=== PATIENT | female | born 1955 | race African-American/Black ===

== ENCOUNTER → 2020-08-21 | Outpatient (CLI) | payer OTHER ==
[~2020-08-21] MED LIST: ASPIR 8181 MG PO; ASPIRIN325 PO; ATORVASTATIN CA40 MG PO; BACITRACIN15 GM TOP; BAYER CHEWABLE81 MG PO; COZAAR 25 MG TA25 M1 PO; EFFIENT10 MG PO; HYDROCHLOROTHIA25 M2 PO; HYDROCODONE-AP1 EAC6 PO; IBUPROFEN 200200 M1 PO; LIDODERM 5%1 PATC1 TRANSDERM; LINZESS145 MCG PO; MICARDIS 80 MG80 MG PO; MICARDIS HCT 81 EAC1 PO; MIRALAX17 GM PO; PERCOCET PO; SLEEPING PILL; TOPROL XL25 MG PO; VENTOLIN HFA 1818 GM INH; VITAMIN D1000 UNI1 PO
== END ==
LOC: SJCVC 13:47 → SJCVCIMAG 13:47
PROVIDERS: ATTEND Internal Medicine Cardiovascular Disease
DX: I65.23 Occlusion and stenosis of bilateral carotid arteries (principal); R94.31 Abnormal electrocardiogram [ECG] [EKG]; I25.10 Atherosclerotic heart disease of native coronary artery without angina pectoris; I10 Essential (primary) hypertension; E78.00 Pure hypercholesterolemia, unspecified; Z95.1 Presence of aortocoronary bypass graft; Z79.899 Other long term (current) drug therapy; Z87.891 Personal history of nicotine dependence

== ENCOUNTER → 2020-10-07 | Outpatient (CLI) | payer OTHER | LOC: SJCVCIMAG 09-11 11:37 | PROVIDERS: ATTEND Internal Medicine Cardiovascular Disease | DX: I07.1 Rheumatic tricuspid insufficiency (principal); I25.10 Atherosclerotic heart disease of native coronary artery without angina pectoris; I10 Essential (primary) hypertension; E78.5 Hyperlipidemia, unspecified; Z98.61 Coronary angioplasty status; Z95.1 Presence of aortocoronary bypass graft; Z79.82 Long term (current) use of aspirin; Z79.899 Other long term (current) drug therapy ==

== ENCOUNTER → 2021-03-11 | Outpatient (CLI) | payer OTHER ==
[~2021-03-11] VITALS: Ht 160 cm; Wt 76.2 kg
[~2021-03-11] MED LIST changes: +.; +ADIPEX-P37.5 MG PO; +DIAZEPAM 5 MG5 M1 PO; +DIFLUCAN150 M1 PO; +MELOXICAM15 MG PO; +NEURONTIN300 MG PO; +OLMESARTAN MEDO40 MG PO; +ROSUVASTATIN CA10 MG PO
[2021-03-11 13:59] VITALS: BP 126/80
--- NOTE | 2021-03-25 08:50 | NUR ---
Pain Clinic Assessment: 1. History of Osteoarthritis: NO History of Rheumatoid Arthritis: NO 2. Height: 5 ft. 3 in. 160.0 cm. Weight: 168.0 lb. oz. 76.204 kg. Patient's BMI: 29.8 3. Vital Signs: BP: 126/80 Pulse: 95 Resp: 16 Temp: 02 Sat: 100 ECG Mon: 4. Pain Intensity: 1-2 5. Fall Risk: Dizziness: N Needs help standing or walking: N Fallen in the last 3 months: N Fall risk comments: 6. Patient on Blood Thinner: None 7. History of Hypertension: Y 8. Opioid Therapy greater than 6 weeks: N Opiate Contract Signed: 9. Risk Assessment Tool Provided: 10. Functional Assessment Tool: 11. Recreational Drug Use: Never Drug Type: Tobacco Use: Never Smoker Tobacco Type: Amount or Packs/day: How Many Years: Alcohol Use: Yes Frequency: Weekly Quant: ONE DRINK A WEEK
== END | disposition home or self-care (01) ==
LOC: PAIN 12:25
PROVIDERS: ATTEND Anesthesiology Pain Medicine
DX: M51.16 Intervertebral disc disorders with radiculopathy, lumbar region (principal); G89.29 Other chronic pain; I10 Essential (primary) hypertension; I25.2 Old myocardial infarction; I25.10 Atherosclerotic heart disease of native coronary artery without angina pectoris; E11.9 Type 2 diabetes mellitus without complications; E78.5 Hyperlipidemia, unspecified; Z98.890 Other specified postprocedural states; Z79.899 Other long term (current) drug therapy; Z87.442 Personal history of urinary calculi

== ENCOUNTER → 2021-03-27 | Outpatient (CLI) | payer OTHER ==
[~2021-03-27] VITALS: Ht 160 cm; Wt 77.8 kg
[~2021-03-27] MED LIST changes: -.; -NEURONTIN300 MG PO
[2021-03-27 14:29] VITALS: BP 133/85
--- NOTE | 2021-03-27 14:39 | NUR ---
Pain Clinic Assessment: 1. History of Osteoarthritis: NO History of Rheumatoid Arthritis: NO 2. Height: 5 ft. 3 in. 160.0 cm. Weight: 171.6 lb. oz. 77.837 kg. Patient's BMI: 30.4 3. Vital Signs: BP: 133/85 Pulse: 84 Resp: 16 Temp: 02 Sat: 98 ECG Mon: 4. Pain Intensity: 1 UP TO 10 AFTER WALKING 5. Fall Risk: Dizziness: N Needs help standing or walking: N Fallen in the last 3 months: N Fall risk comments: 6. Patient on Blood Thinner: None 7. History of Hypertension: Y 8. Opioid Therapy greater than 6 weeks: N Opiate Contract Signed: 9. Risk Assessment Tool Provided: 10. Functional Assessment Tool: 11. Recreational Drug Use: Never Drug Type: Tobacco Use: Never Smoker Tobacco Type: Amount or Packs/day: How Many Years: Alcohol Use: Yes Frequency: Monthly Quant: 2
== END | disposition home or self-care (01) ==
LOC: PAIN 07:10
PROVIDERS: ATTEND Anesthesiology Pain Medicine
DX: M54.16 Radiculopathy, lumbar region (principal); G89.29 Other chronic pain; I10 Essential (primary) hypertension; E78.5 Hyperlipidemia, unspecified; E11.9 Type 2 diabetes mellitus without complications; I25.10 Atherosclerotic heart disease of native coronary artery without angina pectoris; I25.2 Old myocardial infarction; Z98.890 Other specified postprocedural states; Z79.899 Other long term (current) drug therapy; Z87.442 Personal history of urinary calculi

== ENCOUNTER → 2021-04-22 | Outpatient (CLI) | payer OTHER ==
[~2021-04-22] MED LIST changes: +.; +NEURONTIN300 MG PO
[2021-04-22 10:06] VITALS: BP 143/89
--- NOTE | 2021-04-22 10:27 | NUR ---
Pain Clinic Assessment: 1. History of Osteoarthritis: NO History of Rheumatoid Arthritis: NO 2. Height: ft. in. cm. Weight: lb. oz. kg. Patient's BMI: 3. Vital Signs: BP: 143/89 Pulse: 78 Resp: 14 Temp: 02 Sat: 100 ECG Mon: 4. Pain Intensity: 1 UP TO 10 AFTER WALKING 5. Fall Risk: Dizziness: N Needs help standing or walking: N Fallen in the last 3 months: N Fall risk comments: 6. Patient on Blood Thinner: None 7. History of Hypertension: Y 8. Opioid Therapy greater than 6 weeks: N Opiate Contract Signed: 9. Risk Assessment Tool Provided: LOW-0 10. Functional Assessment Tool: 11. Recreational Drug Use: Never Drug Type: Tobacco Use: Never Smoker Tobacco Type: Amount or Packs/day: How Many Years: Alcohol Use: Yes Frequency: Special Occasions Quant:
== END ==
LOC: PAIN 06:57
PROVIDERS: ATTEND Anesthesiology Pain Medicine
DX: M54.16 Radiculopathy, lumbar region (principal); M54.12 Radiculopathy, cervical region; E11.9 Type 2 diabetes mellitus without complications; N20.0 Calculus of kidney; E53.8 Deficiency of other specified B group vitamins; I25.10 Atherosclerotic heart disease of native coronary artery without angina pectoris; I10 Essential (primary) hypertension; E78.5 Hyperlipidemia, unspecified; Z79.899 Other long term (current) drug therapy; Z79.891 Long term (current) use of opiate analgesic

== ENCOUNTER 2021-06-18 18:41 | Inpatient (IN) | payer OTHER ==
[~2021-06-18] VITALS: Ht 160 cm; Wt 77.1 kg
--- NOTE | 2021-06-18 00:10 | NUR ---
Pt admit to ICU around 0010. She is AAOX4. Noted to be labored breathing upron arrival. Her RR is in mid 40. Denies of any CP or chest discomfort. Very tachypneic with any activity noted. Hx obtained , assessment completed. Continue to monitor her colosely
[2021-06-18 18:45] VITALS: BP 173/108
[2021-06-18 20:12] LABS: HEMOGLOBIN 13.1 gm/dL (12.0-15.0); MCH 27.4 pg (26.0-34.0); MCHC 32.8 g/dL (28.0-37.0); MCV 83.6 fL (80.0-100.0); PLATELET COUNT 260 thou/uL (150-400); RBC 4.79 mil/uL (4.20-5.00); RDW 14.3 % (10.5-14.5); WBC 6.2 thou/uL (4.0-11.0)
[2021-06-18 20:14] LABS: ANION GAP 10 mmol/L (7-16); BUN 19 mg/dL (7-18); CALCIUM 9.1 mg/dL (8.5-10.1); CHLORIDE 98 mmol/L (98-107); CO2 28 mmol/L (21-32); CREATININE 1.1 mg/dL (0.6-1.0); GLUCOSE 97 mg/dL (74-106); POTASSIUM 3.4 mmol/L (3.5-5.1); SODIUM 136 mmol/L (136-145)
[2021-06-18 20:25] LABS: ALBUMIN 2.7 g/dL (3.4-5.0); SGOT 73 U/L (15-37); SGPT 31 U/L (30-65); TOTAL BILIRUBIN 0.7 mg/dL (0.2-1.0); TOTAL PROTEIN 8.1 g/dL (6.4-8.2); TROPONIN-I <0.06 ng/mL (<0.06)
[2021-06-18 20:56] LABS: ABSOLUTE NEUTROPHILS 4.7 thou/uL (1.4-8.2); ANISOCYTOSIS 1+; PLATELET ESTIMATE NORMAL; POIKILOCYTOSIS 1+
[2021-06-18 21:16] LABS: BE(vivo) 2.2 mmol/L (-2 to +3); HCO3 25.3 mmol/L (22.0-26.0); PCO2 34.3 mmHg (35.0-45.0); PO2 88.9 mmHg (80.0-100.0); pH 7.486 (7.360-7.450); sO2 97.4 % (92.0-98.0)
[2021-06-18] MEDS ORDERED: METFORMIN HCL500 MG PO (21:33)
[2021-06-18] MEDS ORDERED: NEURONTIN 300M300 M2 PO (21:34)
[2021-06-18 23:58] VITALS: BP 162/83
[2021-06-19] VITALS (53 sets, daily range): BP systolic 137–194; BP diastolic 73–108
--- NOTE | 2021-06-19 07:00 | NUR ---
Pt is continue to be very tachypneic. Place her on BIPAP this morning. She reported felt slightly better. Continue to be on high O2 concentration. Not making any progress this morning.
--- NOTE | 2021-06-19 07:19 | EKG ---
[address] [address] ELECTROCARDIOGRAM REPORT Name: DURGA ALMANZA Room #: 240-P ADM IN M.R.#: [id number] Admission: 06/18/21 Attend Phys: Alli Blancas DO Discharge: Date of : 53 Report #: [id number] [facility] ED Test Date: 2021-06-18 Test Time: 20:24:39 Pat Name: DURGA ALMANZA Department: Room: 240 Gender: F [employer] Architect: philomena pierre : 1955 Requested By: Pawan Singh Order Number: [id number] MD: Conor Bey Measurements Intervals [place] Rate: 99 P: 19 RI: 111 QRS: -21 QRSD: 92 T: 158 QT: 347 QTc: 446 Interpretive Statements Sinus rhythm Probable left atrial enlargement LVH with secondary repolarization abnormality Compared to ECG 04/13/2016 06:41:32 Left ventricular hypertrophy now present Early repolarization now present Intraventricular conduction delay no longer present T-wave abnormality no longer present Possible ischemia no longer present Electronically Signed On 06-19-2021 7:19:23 CDT by Conor Bey [email or web address] <ELECTRONICALLY SIGNED> By: Conor Bey MD, FAC 06/19/21718 23 23 Conor Bey MD, [facility] /EPI
--- NOTE | 2021-06-19 08:20 | NUR ---
SPOKE TO PT'S SON AT 0819 AND UPDATED PER POC
[2021-06-19 09:33] LABS: ALBUMIN 2.4 g/dL (3.4-5.0); CALCIUM 8.5 mg/dL (8.5-10.1); CREATININE 0.8 mg/dL (0.6-1.0); DIRECT BILIRUBIN 0.2 mg/dL (<0.1-0.2); PHOSPHORUS 2.9 mg/dL (2.6-4.7); POTASSIUM 3.5 mmol/L (3.5-5.1); TOTAL BILIRUBIN 0.5 mg/dL (0.2-1.0); TOTAL PROTEIN 7.3 g/dL (6.4-8.2)
--- NOTE | 2021-06-19 10:49 | NUR ---
ASSUMED CARE OF PT AT 0700. DR. NORTON AT BEDSIDE AY 0815. ORDERS FOR SPUTUM SAMPLE GIVEN.
--- NOTE | 2021-06-19 14:57 | NUR ---
COVID +. Enhanced isolation. Needing bipap and optflow oxygen. Cm visited with her son jesus sosa via phone call. Education on dcp and home needs. CM clarification on dr carolina vs dr cross as her pcp, both listed. Per son she is with dr cross at [facility], she not seen dr ramirez in years. She lives in [place] [facility] in [facility] but connected. Independent. No dme, manage own medication, and drives vehicle. Had 1st covid vaccine and she was suppose to go and get 2nd one but she got sick. no rehab in past. home health 1 time before for couple weeks. thank you for calling per son reba sosa and son . No anticipated dc over the weekend. Cm passed on to bedside nurse about change in MD.
[2021-06-20] VITALS (43 sets, daily range): BP systolic 129–176; BP diastolic 65–105
[2021-06-20 04:07] LABS: CALCIUM 7.9 mg/dL (8.5-10.1); CREATININE 0.8 mg/dL (0.6-1.0); POTASSIUM 3.2 mmol/L (3.5-5.1)
[2021-06-20 04:48] LABS: HEMATOCRIT 34.3 % (37.0-47.0); HEMOGLOBIN 11.2 gm/dL (12.0-15.0); MCH 27.3 pg (26.0-34.0); MCHC 32.8 g/dL (28.0-37.0); MCV 83.4 fL (80.0-100.0); RBC 4.11 mil/uL (4.20-5.00); WBC 10.9 thou/uL (4.0-11.0)
--- NOTE | 2021-06-20 08:05 | NUR ---
1999-SPOKE TO PT'S SON, UPDATE GIVEN. 2129-SPOKE TO DR. ROY, PT HAD ASKED FOR SLEEPING PILL, ALSO REPORTED TYLENOL DIDN'T HELP. OBTAINED ORDERS FOR MELATONIN AND NORCO. NORCO GIVEN x2 OVERNIGHT. BP BETTER CONTROLLED OVERNIGHT, STARTED TO RISE AGAIN THIS AM. RESP RATE CONTINUED TO BE 30-40'S OVERNIGHT. NO OTHER CONCERNS, SLOW PROGRESSION TOWARDS GOALS.
--- NOTE | 2021-06-20 09:05 | HC ---
[facility] [place] [address] CONSULTATION Name: DURGA ALMANZA Room #: 240-P ADM IN M.R.#: [id number] Admission: 06/18/21 Attend Phys: Alli Blancas DO Discharge: Date of : 53 Report #: [id number] THIS REPORT FOR: cc: Jose E Pope John E. DO Barry, Joseph W. MD ~ DATE OF SERVICE: 06/19/2021 INFECTIOUS DISEASE CONSULTATION ATTENDING PHYSICIAN: Dr. Blancas REASON FOR EVALUATION: COVID-19 infection, complicated by pneumonitis and respiratory failure. HISTORY OF PRESENT ILLNESS: Chart reviewed and the patient examined. This is a 66-year-old woman with history of diabetes mellitus, has known vasculopathy, coronary artery disease, hypertension, is admitted through the Emergency Room with progressive dyspnea and some fever, sore throat, cough as well. It is dated back to roughly a week ago; however, it progressed over the last 72 hours. She has had some diminishment in appetite, poor p.o. intake during that period as well. Chest x-ray did confirm cardiomegaly with bilateral infiltrates. Due to mildly elevated D-dimer, CT was done of the chest, which showed no evidence of PE, although confirmed extensive bilateral ground-glass opacities, mildly elevated AST. CBC with white count of 6.2. She is not anemic. ABGs showed pH 7.46, pCO2 of 34.3, pO2 of 88.9 on a nonrebreather. She currently is on BiPAP at 80%. She is generally lucid. ALLERGIES: None known. MEDICATIONS: Include enoxaparin, ascorbic acid, famotidine, ceftriaxone, hydralazine, methylprednisolone, zinc, azithromycin, remdesivir. PAST MEDICAL HISTORY: As described above, diabetes, known coronary artery disease, previous aortocoronary bypass grafting, hypertension, hyperlipidemia, renal lithiasis, chronic low back pain, previous history of pneumothorax. SOCIAL HISTORY: Former smoker, occasional ethanol. No illicit drug use, though has used in the past. FAMILY HISTORY: Noncontributory. REVIEW OF SYSTEMS: Somewhat limited due to her decreased capacity. PHYSICAL EXAMINATION: GENERAL: Appears moderate to marked distress. She is generally lucid, tracking [facility] [address] [place] [address] CONSULTATION Name: DURGA ALMANZA Room #: [address] [place] [address] IN M.R.#: [id number] Admission: 06/18/21 Attend Phys: Alli Blancas DO Discharge: Date of : 53 Report #: [id number] well, appears reasonably well nourished. VITAL SIGNS: Temperature 97, pulse 113, respirations 43, blood pressure is 157/83. SKIN: Warm, dry, no rashes. HEENT: Normocephalic. Extraocular muscles intact. Has a BiPAP mask in place. NECK: Supple. LUNGS: Scattered coarse breath sounds. HEART: Tachycardic, distant, ____ a murmur. ABDOMEN: Distended, somewhat firm. No peritoneal signs. She does not complain of any tenderness. GENITOURINARY AND RECTAL: Deferred. LABORATORY DATA: Blood cultures sterile thus far. Electrolytes: Sodium 139, potassium 3 5, chloride 103, bicarbonate is 23, anion gap of 13. BUN and creatinine 13 and 0.8. Glucose of 149. AST of 75, ALT of 30. Albumin of 2.4, total protein 7.3, estimated GFR of 87. CT chest as described above. CBC: White count of 6.2, H and H 13.1 and 40.0, platelets of 260. Electrolytes: Sodium 136, potassium 3.4, chloride 90, bicarbonate is 28, anion gap of 10. BUN and creatinine 19 and 1.1. Glucose of 97. ASSESSMENT AND PLAN: COVID-19 infection, complicated by pneumonitis, respiratory failure with perhaps early acute respiratory distress syndrome. She remains quite tenuous at this point. We will continue broad-spectrum therapy including directed to the coronavirus. Discussed with pharmacy. They are attempting to obtain IL-6 monoclonal antibody. In addition, I will continue remdesivir and corticosteroids as well as vitamins as well as empiric therapy with antibacterials. We will try to obtain a sputum culture, although not likely forthcoming. Thank you, we will follow. Prognosis appears guarded. <ELECTRONICALLY SIGNED> By: Tay Joyner MD 06/20/21 0905 0929 [id number] Tay Joyner MD /nt
--- NOTE | 2021-06-20 16:13 | NUR ---
PATIENT CONTINUING WITH PLAN OF CARE. PATIENT ON BIPAP FIRST HALF OF THE DAY AND SWITCHED TO OPTIFLOW PER PATIENT REQUEST. DR REDD SPOKE WITH PATIENT TODAY ABOUT PLANS FOR POTENTIAL VENTILATION MANAGEMENT. SPOKE WITH FAMILY ON THE PHONE TWICE TODAY ABOUT PATIENT STATUS. SPOKE TO SON FILIPE ALLEN. CENTRAL LINE PLACED BY IV TEAM TODAY. ADEQUATE URINE OUTPUT. AFEBRILE.
[2021-06-21] VITALS (140 sets, daily range): BP systolic 94–190; BP diastolic 60–147
[2021-06-21 05:56] LABS: HEMATOCRIT 36.6 % (37.0-47.0); HEMOGLOBIN 11.8 gm/dL (12.0-15.0); MCH 26.9 pg (26.0-34.0); MCHC 32.1 g/dL (28.0-37.0); MCV 83.7 fL (80.0-100.0); RBC 4.38 mil/uL (4.20-5.00); RDW 14.1 % (10.5-14.5); WBC 11.4 thou/uL (4.0-11.0)
[2021-06-21 06:21] LABS: CALCIUM 8.1 mg/dL (8.5-10.1); CREATININE 0.7 mg/dL (0.6-1.0); POTASSIUM 3.1 mmol/L (3.5-5.1)
--- NOTE | 2021-06-21 09:32 | NUR ---
CL PLACED FOR COVID
[2021-06-21 10:54] LABS: BE(vivo) -4.3 mmol/L (-2 to +3); PO2 287.9 mmHg (80.0-100.0); pH 7.307 (7.360-7.450); sO2 99.6 % (92.0-98.0)
--- NOTE | 2021-06-21 11:02 | NUR ---
0921 INTUBATION WITH RT, RN AND DR REDD IN ROOM.
--- NOTE | 2021-06-21 11:28 | NUR ---
UPON AM ASSESSMENT 0800 PATIENT DESATS TO 65% WITH HFNC AND NON REBREATHER. PATIENT PULLED OFF FACE. PATIENT DROWSY AND RESPONDS TO RN VOICE. PATIENT RR TACHYPNEA UPPER 30'S-40'S. DR REDD NOTIFIED ABOUT PATIENT STATUS. AND PLANS FOR INTUBATION. AROUND 0900 PATIENT HR INCREASED TO 180-[address] REDD NOTIFIED. CARDIZEM GIVEN ONE TIME FOR HR. DR REDD AT BEDSIDE AT 0910. PATIENT INTUBATED AT 0921. PATIENT IN RESTRAINTS BY 0930. PATIENT TOLERATING VENTILATOR SETTINGS AT THIS TIME. SEDATED PROPOFOL AN FENTANYL. PATIENT FAMILY NOTIFIED BEFORE AND AFTER INTUBATED. PATIENT FAMILY SPOKE WITH PATIENT ON PHONE IN ROOM PRIOR TO INTUBATION.
--- NOTE | 2021-06-21 12:26 | EKG ---
[address] [address] ELECTROCARDIOGRAM REPORT Name: DURGA ALMANZA Room #: 240- ADM IN M.R.#: [id number] Admission: 06/18/21 Attend Phys: Alli Blancas DO Discharge: Date of : 53 Report #: [id number] [facility] Test Date: 2021-06-21 Test Time: 09:27:42 Pat Name: DURGA ALMANZA Department: Room: 240 Gender: F [employer] Architect: COURTNEY : 1955 Requested By: Billy Veliz Order Number: [id number] MD: Espinoza Horne Measurements Intervals [place] Rate: 102 P: 38 [place]: 119 QRS: -7 QRSD: 88 T: 141 QT: 356 QTc: 464 Interpretive Statements Sinus tachycardia Probable left atrial enlargement Borderline repolarization abnormality Compared to ECG 06/18/2021 20:24:39 Sinus rhythm no longer present Left ventricular hypertrophy no longer present Electronically Signed On 06-21-2021 12:26:32 CDT by Espinoza Horne [email or web address] <ELECTRONICALLY SIGNED> By: Espinoza Horne MD 06/21/21 1226 6 6 Espinoza Horne MD /KYLE
--- NOTE | 2021-06-21 16:01 | NUR ---
ASSUMED CARE OF PATIENT AT 0600. PATIENT WAS ON A NRBM AND MAXED ON OPTIFLOW OF 65 LPM AND 98%. HER HEART RATE WAS IN THE 190-200 RANGE AND WE CONTACTED DR REDD AND HE CAME TO EMERGENTLY INTUBATE. HER SETTINGS WERE 16/450/.100 +12. POST INTUBATION BLOOD GAS HER PH WAS CRITICAL AT 7.30 AND ALL OTHER VALUES WERE WITHIN NORMAL LIMITS. WE MADE THE CHANGE TO HER VENT SETTINGS TO 16/450/.60 +12. SHE HAS MAINTAINED HER SATURATION AND SHOWN NO SIGNS OF DISTRESS. WE WILL CONTINUE TO WEAN TOLERATED.
--- NOTE | 2021-06-21 16:49 | NUR ---
AFTER INTUBATION FROM EARLIER TODAY AT 0921 PATIENT TOLERATES CURRENT VENTILATOR SETTINGS. CURRENTLY 60% VT 450, RR 16, PEEP 12. PATIENT SEDATED ON PROPOFOL AND FENTANYL. TACHYCARDIA RESOLVES. PATIENT NSR. BLOOD PRESSURE WITHIN NORMAL LIMITS. PATIENT FAMILY (SON) FILIPE UPDATED ON PATIENT STATUS.
[2021-06-22] VITALS (49 sets, daily range): BP systolic 78–117; BP diastolic 49–72
[2021-06-22 05:16] LABS: BE(vivo) -2.8 mmol/L (-2 to +3); HCO3 24.4 mmol/L (22.0-26.0); PCO2 53.7 mmHg (35.0-45.0); PO2 117.5 mmHg (80.0-100.0); sO2 97.7 % (92.0-98.0)
[2021-06-22 05:17] LABS: pH 7.276 (7.360-7.450)
[2021-06-22 06:27] LABS: HEMATOCRIT 31.4 % (37.0-47.0); HEMOGLOBIN 10.2 gm/dL (12.0-15.0); MCH 27.5 pg (26.0-34.0); MCHC 32.3 g/dL (28.0-37.0); MCV 84.9 fL (80.0-100.0); RBC 3.7 mil/uL (4.20-5.00); RDW 14.6 % (10.5-14.5); WBC 9.8 thou/uL (4.0-11.0)
[2021-06-22 06:48] LABS: CREATININE 0.9 mg/dL (0.6-1.0)
[2021-06-22 07:01] LABS: POTASSIUM 4.4 mmol/L (3.5-5.1)
--- NOTE | 2021-06-22 08:43 | NUR ---
COMPLETED ROUNDING WITH ICU TEAM.
--- NOTE | 2021-06-22 10:17 | NUR ---
recommend stop ivf and start water flushes once tube feeds at goal.
--- NOTE | 2021-06-22 15:44 | NUR ---
Chart review. COVID +, required intubation on the 06/21/21. Enhanced isolation. Bedside nurses have provided updates to her son. Will cont following as needed for dc needs.
--- NOTE | 2021-06-22 16:14 | NUR ---
HELD TUBE FEEDING FOR A COUPLE OF HOURS TODAY A RESIDUAL WAS AROUNF 100MLS. RESTART AT 25MLS PER HOUR. UPDATE SON ON PT'S CONDITION OVER PHONE BUT WILL DEFER TO PYSICIAN FOR DEFINITIVE DIAGNOSIS. WILL CONTIUE TO ASSESS.
--- NOTE | 2021-06-22 22:14 | NUR ---
PT'S SON (FILIPE) CALL UNIT. HE WAS UPDATED ON PT STATUS AND POC.
[2021-06-23] VITALS (33 sets, daily range): BP systolic 109–179; BP diastolic 59–94
--- NOTE | 2021-06-23 04:26 | NUR ---
PT REMAINS SEDATED WITH PROPOFOL, FENTANYL, AND VERSED FOR VENT MANAGEMENT. SEDATION WAS ABLE TO BE TITRATED DOWN SLIGHTLY WHILE STILL MAINTAINING PT COMFORT LEVEL, RR, AND SPO2 WITHIN NORMAL LIMITS. AFEBRILE. MAP >60 WITH LEVOPHED GTT. CAAL TO DD WITH GOOD URINE OUTPUT. TF VIA OGT; STILL HAVING RESIDUALS 100-200ML, SO UNABLE INCREASE TF RATE TO GOAL. Q2H TURN. PROGRESSING VERY SLOWLY TOWARD POC GOALS. WILL MONITOR FURTHER.
[2021-06-23 10:09] LABS: HEMATOCRIT 36.1 % (37.0-47.0); HEMOGLOBIN 11.4 gm/dL (12.0-15.0); MCH 26.6 pg (26.0-34.0); MCHC 31.6 g/dL (28.0-37.0); MCV 84.3 fL (80.0-100.0); RBC 4.29 mil/uL (4.20-5.00); RDW 14.1 % (10.5-14.5); WBC 13.5 thou/uL (4.0-11.0)
--- NOTE | 2021-06-23 10:25 | NUR ---
ASSUMED CARE OF PT AT 0700 CALLED THE SON BACK AT 1028, SPOKE TO THE BECAUSE HE WAS UNABLE TO ANSWER AND UPDATED HER PER POC
[2021-06-23 11:21] LABS: CALCIUM 8.8 mg/dL (8.5-10.1); CREATININE 1.2 mg/dL (0.6-1.0); POTASSIUM 4.1 mmol/L (3.5-5.1)
[2021-06-23 11:25] LABS: DIRECT BILIRUBIN 0.2 mg/dL (<0.1-0.2); TOTAL BILIRUBIN 0.3 mg/dL (0.2-1.0); TOTAL PROTEIN 6.6 g/dL (6.4-8.2)
--- NOTE | 2021-06-23 21:50 | NUR ---
UPON INITIAL ASSESSMENT, PT WAS TACHYCARDIC HR 120S, SBP 140-150S. SHE HAD STRONG COUGH/GAG REFLEX CAUSING HER TO SIT UP IN BED. SEDATION HAD BEEN DECREASED GREATLY DURING PREVIOUS SHIFT. INCREASED PROPOFOL AND FENTANYL DRIP RATES. RESUMED VERSED GTT AT LOW DOSE. PT NOW MORE RELAXED, HR 110S, SBP 120S, RESTING QUIETLY IN BED. WILL MONITOR FURTHER.
[2021-06-24] VITALS (34 sets, daily range): BP systolic 102–150; BP diastolic 54–86
--- NOTE | 2021-06-24 06:30 | NUR ---
PT REMAINS SEDATED WITH PROPOFOL, FENTANYL, AND VERSED AT NRON-CQ-BLSYTOUQ DOSES. TF INCREASED TO GOAL RATE SHE HAS BEEN TOLERATING TF WELL WITH LOW RESIDUALS. NO BM YET. GOOD URINE OUTPUT VIA CAAL. TOLERATING VENT SETTINGS WELL; REMAINS ON 40% FIO2. SHE DOES DESAT IN TO THE 80S WITH HOB LOWERED OR SIGNIFICANT REPOSITIONING. PROGRESSING SLOWLY TOWARD POC GOALS. WILL GIVE REPORT TO DAY SHIFT RN.
[2021-06-24 13:30] LABS: HEMATOCRIT 32.9 % (37.0-47.0); HEMOGLOBIN 10.4 gm/dL (12.0-15.0); MCH 26.6 pg (26.0-34.0); MCHC 31.5 g/dL (28.0-37.0); MCV 84.5 fL (80.0-100.0); RBC 3.9 mil/uL (4.20-5.00); RDW 14.5 % (10.5-14.5); WBC 14.5 thou/uL (4.0-11.0)
[2021-06-24 16:41] LABS: CREATININE 1.1 mg/dL (0.6-1.0); MAGNESIUM 2.1 mg/dL (1.8-2.4); POTASSIUM 4.5 mmol/L (3.5-5.1)
--- NOTE | 2021-06-24 21:18 | NUR ---
ASSUMED CARE OF PATIENT AT 1900. PATIENT'S SON FILIPE CALLED. UPDATED ON PATIENT STATUS AND POC. SON ASKED TO Uni[facility], PHONE NUMBER OBTAINED, USED THE IPAD TO CALL. IPAD IS CURRENTLY IN THE ROOM WITH THE PATIENT, SON AND HIS ARE SPEAKING WITH HER.
[2021-06-25] VITALS (29 sets, daily range): BP systolic 101–154; BP diastolic 53–98
[2021-06-25 03:56] LABS: HEMATOCRIT 32.9 % (37.0-47.0); HEMOGLOBIN 10.4 gm/dL (12.0-15.0); MCH 26.7 pg (26.0-34.0); MCHC 31.5 g/dL (28.0-37.0); MCV 84.7 fL (80.0-100.0); PLATELET COUNT 196 thou/uL (150-400); RBC 3.88 mil/uL (4.20-5.00); RDW 14.3 % (10.5-14.5); WBC 13.5 thou/uL (4.0-11.0)
[2021-06-25 04:42] LABS: BE(vivo) -1.8 mmol/L (-2 to +3); HCO3 25.7 mmol/L (22.0-26.0); PCO2 56.9 mmHg (35.0-45.0); PO2 98.6 mmHg (80.0-100.0); pH 7.273 (7.360-7.450); sO2 96.5 % (92.0-98.0)
[2021-06-25 04:50] LABS: ALBUMIN 1.7 g/dL (3.4-5.0); CALCIUM 8.2 mg/dL (8.5-10.1); POTASSIUM 4.7 mmol/L (3.5-5.1); TOTAL BILIRUBIN 0.2 mg/dL (0.2-1.0); TOTAL PROTEIN 5.7 g/dL (6.4-8.2)
[2021-06-25 09:10] LABS: ABSOLUTE NEUTROPHILS 12.6 thou/uL (1.4-8.2); PLATELET ESTIMATE NORMAL
--- NOTE | 2021-06-25 20:32 | NUR ---
PATIENT'S SON, FILIPE, CALLED FROM [phone] AND FROM [phone] AND HE WAS UPDATED AND EDUCATED ON THE PATIENT'S CONDITION AND PLAN OF CARE. PATIENT SLOWLY PROGRESSING TOWARDS THE PLAN OF CARE EVIDENCED BY DECREASED SEDATION NEEDS.
[2021-06-26] VITALS (25 sets, daily range): BP systolic 132–184; BP diastolic 68–95
--- NOTE | 2021-06-26 15:15 | NUR ---
Chart review, discussed during am unite rounds and los. +COVID, remains on vent with nutritional support. Bedside nurse has provided updates to her son reba yanes cont. following as needed for dc needs.
[2021-06-27] VITALS (23 sets, daily range): BP systolic 122–200; BP diastolic 72–104
[2021-06-27 04:12] LABS: ABSOLUTE NEUTROPHILS 8.2 thou/uL (1.4-8.2); BASOPHILS 0.2 % (0.0-2.0); HEMATOCRIT 33.3 % (37.0-47.0); HEMOGLOBIN 10.6 gm/dL (12.0-15.0); LYMPHOCYTES 5.4 % (24.0-44.0); MCH 26.4 pg (26.0-34.0); MCHC 31.7 g/dL (28.0-37.0); MCV 83.3 fL (80.0-100.0); MONOCYTES 6.9 % (1.0-8.0); PLATELET COUNT 239 thou/uL (150-400); POLYS 87.5 % (36.0-66.0); RBC 3.99 mil/uL (4.20-5.00); RDW 14.1 % (10.5-14.5); WBC 9.4 thou/uL (4.0-11.0)
[2021-06-27 04:29] LABS: ALBUMIN 1.9 g/dL (3.4-5.0); CALCIUM 8.3 mg/dL (8.5-10.1); CREATININE 0.9 mg/dL (0.6-1.0); POTASSIUM 5.2 mmol/L (3.5-5.1); TOTAL BILIRUBIN 0.3 mg/dL (0.2-1.0)
--- NOTE | 2021-06-27 08:44 | NUR ---
ASSUMED CARE OF PT AT 0700 SPOKE TO PT SON AND UPDATED PER POC
[2021-06-28] VITALS (25 sets, daily range): BP systolic 129–182; BP diastolic 70–97
--- NOTE | 2021-06-28 09:02 | NUR ---
ASSUMED CARE OF PT AT 0700 SPOKE TO PT'S SON AT 0900 AND UPDATED HIM PER POC
[2021-06-28 09:21] LABS: HEMATOCRIT 33.3 % (37.0-47.0); HEMOGLOBIN 10.8 gm/dL (12.0-15.0); MCHC 32.5 g/dL (28.0-37.0); RBC 4.01 mil/uL (4.20-5.00); RDW 14.4 % (10.5-14.5); WBC 9.5 thou/uL (4.0-11.0)
[2021-06-28 09:31] LABS: CALCIUM 9.1 mg/dL (8.5-10.1); POTASSIUM 5.3 mmol/L (3.5-5.1)
--- NOTE | 2021-06-28 18:39 | NUR ---
Pt not meeting goals. Arousable only to painful stimulation.
--- NOTE | 2021-06-28 22:33 | NUR ---
2145 - DR ROY AT BEDSIDE TO SEE PT. NURSE IN ROOM WELL. DR ROY WAS NOTIFIED THAT PT IS MINIMALLY RESPONSIVE EVEN WITHOUT ANY SEDATION. SHE DID GRIMACE WITH PAINFUL STIMULI BY STERNAL RUB. + COUGH/GAG REFLEX. SHE DOES NOT FOLLOW COMMANDS OR OPEN HER EYES. DR ROY WAS ALSO MADE AWARE THAT HER PUPILS HAD BEEN UNEQUAL, BUT UPON REASSESSMENT BY BOTH AND RN, PUPILS APPEARED EQUAL AND REACTIVE TO LIGHT. DR ROY REQUESTED RN CALL CLINICAL PHARMACIST FOR IVF RECOMMENDATION AND THEN TO ORDER IVF ACCORDINGLY.
[2021-06-29] VITALS (29 sets, daily range): BP systolic 113–180; BP diastolic 55–100
--- NOTE | 2021-06-29 03:40 | NUR ---
PT'S SON FILIPE CALLED UNIT. UPDATE PROVIDED ON PT'S CONDITION AND POC. ALL QUESTIONS ANSWERED. HE WOULD LIKE TO CALL BACK LATER TO KEVIN HIS MOTHER IN THE IPAD.
--- NOTE | 2021-06-29 03:42 | NUR ---
NO SIGNIFICANT EVENTS SO FAR DURING THE NIGHT. PT REMAINS OFF SEDATION. SHE STILL DOES NOT OPEN EYES OR RESPOND TO VERBAL COMMANDS. PT DOES GRIMACE AND ATTEMP TO MOVE HEAD AWAY WHEN ORAL CARE IS PROVIDED. TF AT GOAL RATE, INFUSING VIA OGT. MINIMAL RESIDUALS NOTED. CAAL TO DD WITH GOOD URINE OUTPUT. LOW-GRADE FEVER NOTED. WILL TREAT WITH TYLENOL INDICATED. PROGRESSING SLOWLY TOWARD POC GOALS. WILL MONITOR FURTHER.
--- NOTE | 2021-06-29 05:38 | NUR ---
0530 - PT'S SON AND [id number] FACETIMED WITH PT ON IPAD.
--- NOTE | 2021-06-29 10:08 | NUR ---
ASSUMMED CARE OF THIS PATIENT AT 0700 THIS AM FROM THE NIGHT NURSE, CARMEN SOLIS. PATIENT REMAINS ON TUBE FEEDING AND TOLERATING IT WELL. HEART RATE INCREASED TO THE 120'S WITH ETT SUCTIONING.
--- NOTE | 2021-06-29 11:00 | NUR ---
CALLED THE PATIENT'S SON AND UPDATED HIM ON HIS MOTHER'S CONDITION AND POC. REASSURANCE GIVEN,
--- NOTE | 2021-06-29 15:01 | NUR ---
Chart review, discussed during am unite rounds . COVID +. Bedside nurse cont. update son and daughter in law. Noted son and daughter in law were able to face time this morning . Vent. Nutritional support. Will cont. following as needed for dc needs.
--- NOTE | 2021-06-29 16:40 | NUR ---
PATIENT IS STABLE BUT NOT PROGRSSING TOWARDS OUTCOME GOALS SHE IS UNABLE TO CPAP TODAY. SEDATION REMAINS OFF. PLEASE REFER TO ASSESSMENTS.
[2021-06-30] VITALS (36 sets, daily range): BP systolic 125–193; BP diastolic 59–141
[2021-06-30 04:49] LABS: HEMATOCRIT 32.2 % (37.0-47.0); HEMOGLOBIN 10.3 gm/dL (12.0-15.0); MCHC 32.1 g/dL (28.0-37.0); MCV 84.1 fL (80.0-100.0); RBC 3.83 mil/uL (4.20-5.00); RDW 14.1 % (10.5-14.5); WBC 7.7 thou/uL (4.0-11.0)
[2021-06-30 05:50] LABS: CALCIUM 8.5 mg/dL (8.5-10.1); CREATININE 0.8 mg/dL (0.6-1.0); POTASSIUM 4.9 mmol/L (3.5-5.1)
[2021-06-30 08:12] LABS: BE(vivo) 8.2 mmol/L (-2 to +3); HCO3 32.5 mmol/L (22.0-26.0); PCO2 44.4 mmHg (35.0-45.0); PO2 73.2 mmHg (80.0-100.0); pH 7.483 (7.360-7.450); sO2 95.6 % (92.0-98.0)
--- NOTE | 2021-06-30 10:11 | NUR ---
ASSUMED CARE OF PT AT 0700.
--- NOTE | 2021-06-30 16:08 | NUR ---
SPOKE TO DR. REDD AT 1608 TO LET HIM KNOW THAT CT ONLY HAS ONE TECH AND ARE BACKED UP WITH ED PATIENTS. HE SAID THAT GETTING THE CT THIS EVENING OR FIRST THING TOMORROW MORNING WOULD BE FINE.
--- NOTE | 2021-06-30 18:02 | NUR ---
PT NOT MEETING GOALS DUE TO ONLY FOLLOWING SIMPLE COMMANDS AND NOT FULLY WAKING UP.
--- NOTE | 2021-06-30 18:35 | NUR ---
DR. ROY AT BEDSIDE 183. NO NEW ORDERS GIVEN.
[2021-07-01] VITALS (47 sets, daily range): BP systolic 111–177; BP diastolic 54–93
[2021-07-01 03:25] LABS: HEMATOCRIT 30.5 % (37.0-47.0); HEMOGLOBIN 9.7 gm/dL (12.0-15.0); MCH 26.9 pg (26.0-34.0); MCHC 31.8 g/dL (28.0-37.0); MCV 84.5 fL (80.0-100.0); RBC 3.61 mil/uL (4.20-5.00); RDW 13.9 % (10.5-14.5); WBC 8.5 thou/uL (4.0-11.0)
[2021-07-01 04:50] LABS: CALCIUM 8.7 mg/dL (8.5-10.1); CREATININE 0.8 mg/dL (0.6-1.0); POTASSIUM 4.7 mmol/L (3.5-5.1)
--- NOTE | 2021-07-01 06:26 | NUR ---
ASSUMED CARE OF PATIENT AT 1900. RESTING THROUGH THE NIGHT. FACETIME WITH SON AT 0530 THIS AM. ALL QUESTIONS ANSWERED.
--- NOTE | 2021-07-01 12:22 | HC ---
[facility] [place] [address] CONSULTATION Name: DURGA ALMANZA Room #: 240-P ADM IN M.R.#: [id number] Admission: 06/18/21 Attend Phys: Alli Blancas DO Discharge: Date of : 53 Report #: [id number] THIS REPORT FOR: cc: Jose E Pope John E. DO Khosla, Parveen K. MD ~ DATE OF SERVICE: 06/30/2021 HISTORY OF PRESENT ILLNESS: This is a 66-year-old female patient who was evaluated by me for altered mental status. This patient is having numerous medical problems and I will confine myself to altered mental status only. Record indicates that this patient was admitted earlier this month with COVID pneumonia. She was on a lot of sedation, but the sedation has been reversed and she is waking up, but is not as responsive as she was expected to be as I understand and that is why a neurology consultation is being requested. She had a CT scan ordered according to the nurses and that is not done because of some problem with the CT scan. She cannot provide any review of systems. So, I checked the records and the records indicate that this patient has a history of cardiac bypass, pneumothorax, lumbar pain, kidney stone, diabetes, B12 deficiency, coronary artery disease, hypertension, hyperlipidemia. HOME MEDICATION: Significant for the fact that the patient used to be on gabapentin and looks like phentermine. She also took a p.r.n. diazepam. It looks like she was taking some psychotropic medication. PAST MEDICAL HISTORY: Positive for diabetes and back pain. FAMILY HISTORY: Unavailable, but record indicates noncontributory. SOCIAL HISTORY: She does not smoke or drink alcohol. PHYSICAL EXAMINATION: NEUROLOGICAL: Examination was limited. This patient could not cooperate with the higher functions and cranial nerve examination, but she moved all 4 extremities. She appeared to be weak, but when I asked her to squeeze my fingers, she did and when I asked her to let her go, she did. She could not cooperate with the sensory examinations and she could not take an appropriate posture to look for any reflexes in this patient. I could not look at the fundus and that is all I could do in this patient. VITAL SIGNS: Her blood pressure is 182/94, pulse is 104. LABORATORY DATA: Labs indicate her sodium is a traced low at 134, BUN is somewhat high at 49, but GFR is 87. IMPRESSION AND PLAN: This patient's condition is most likely because of encephalopathy caused by multiple systemic problems, especially her COVID [facility] [address] [address] CONSULTATION Name: DURGA ALMANZA Room #: [address] [place] [address] [place] [facility]#: [id number] Admission: 06/18/21 Attend Phys: Alli Blancas DO Discharge: Date of : 53 Report #: [id number] pneumonia and associated problem. Brain can be directly affected by antibodies and brain effects are common after severe COVID. I am not sure anything can be done about it. I did order a TSH and vitamin B12, we will suggest checking that. I would review the CT scan once it is available. Until CT scan shows any overriding finding, the main thing is to continue the systemic management. Thank you very much for this referral and please feel free to call me if you have any question. <ELECTRONICALLY SIGNED> By: Colin Gamez MD 07/01/21 1222 2033 0056 Colin Gamez MD /nt
--- NOTE | 2021-07-01 15:11 | NUR ---
ASSUMED CARE OF PT AT 0700. PT WENT FOR CT THIS MORNING AND IT CONFIRMED THAT SHE HAD A STROKE. DR. REDD ORDERED AN MRI TO BE COMPLETED IN THE MORNING. SPOKE TO DR. ROY AT 1416 AND LET HIM KNOW ABOUT THE STROKE AND HE SAID HE WOULD REVIEW THE SCAN AND CALL AND INFORM THE FAMILY. SPOKE TO DR. HAGAN AT 1418 AND HE WANTED TO MAKE SURE I KNEW ABOUT THE CT RESULTS AND THAT AN MRI WAS NEEDED. I INFORMED HIM THAT IT WILL DONE IN THE MORNING.
--- NOTE | 2021-07-01 20:45 | NUR ---
ASSUMED CARE OF PATIENT AT 1900. SON CALLED AT 2044, DISCUSSED PATIENTS CT RESULTS. SON REPORTS PATIENT WAS HAVING HEADACHES AND ARM PAIN PRIOR TO POSITIVE COVID TEST. WOULD LIKE TO SPEAK WITH NEUROLOGIST, WILL PASS ON TO DAY SHIFT. SON WOULD ALSO LIKE TO TALK WITH DR REDD TO DISCUSS FUTURE PLANS.
[2021-07-02] VITALS (25 sets, daily range): BP systolic 111–181; BP diastolic 62–96
[2021-07-02 05:25] LABS: HEMATOCRIT 29.5 % (37.0-47.0); HEMOGLOBIN 9.4 gm/dL (12.0-15.0); MCH 27.1 pg (26.0-34.0); MCHC 31.9 g/dL (28.0-37.0); MCV 85.1 fL (80.0-100.0); RBC 3.47 mil/uL (4.20-5.00); RDW 14.1 % (10.5-14.5); WBC 8.3 thou/uL (4.0-11.0)
[2021-07-02 05:41] LABS: CREATININE 0.7 mg/dL (0.6-1.0); POTASSIUM 4.1 mmol/L (3.5-5.1)
--- NOTE | 2021-07-02 14:41 | NUR ---
1441HRS - PT'S SON CALLED AND WAS INFORMED AND UPDATED ON PT'S CONDITION.
[2021-07-02 16:23] LABS: ALBUMIN 2.3 g/dL (3.4-5.0); DIRECT BILIRUBIN 0.1 mg/dL (<0.1-0.2); TOTAL BILIRUBIN 0.4 mg/dL (0.2-1.0); TOTAL PROTEIN 5.5 g/dL (6.4-8.2)
[2021-07-02 20:21] LABS: URINE BILIRUBIN NEGATIVE (Negative); URINE BLOOD 3+ (Negative); URINE CLARITY SL CLOUDY; URINE COLOR YELLOW; URINE GLUCOSE-RANDOM* NEGATIVE (Negative); URINE KETONES NEGATIVE (Negative); URINE NITRITE-REFLEX NEGATIVE (Negative); URINE PROTEIN (DIPSTICK) NEGATIVE (Negative); URINE SPECIFIC GRAVITY 1.015 (1.005-1.035)
[2021-07-02 20:24] LABS: URINE LEUKOCYTES-REFLEX 1+ (Negative)
[2021-07-02 20:37] LABS: MUCUS 0-3 Light strn/LPF (None Seen); SQUAMOUS 0-3 Few /LPF (0-3)
[2021-07-02 20:38] LABS: CASTS None Seen /LPF (None Seen); CRYSTALS None Seen /LPF (None Seen); URINE RBC >20 Many /HPF (NONE SEEN)
[2021-07-03] VITALS (28 sets, daily range): BP systolic 99–186; BP diastolic 43–88
[2021-07-03 03:42] LABS: HEMATOCRIT 29.3 % (37.0-47.0); HEMOGLOBIN 9.4 gm/dL (12.0-15.0); MCH 27.4 pg (26.0-34.0); MCV 85.6 fL (80.0-100.0); RBC 3.43 mil/uL (4.20-5.00); WBC 8.2 thou/uL (4.0-11.0)
[2021-07-03 03:45] LABS: CALCIUM 8.6 mg/dL (8.5-10.1); CREATININE 0.7 mg/dL (0.6-1.0); POTASSIUM 4.1 mmol/L (3.5-5.1)
--- NOTE | 2021-07-03 04:30 | NUR ---
ASSUMED CARE OF PATIENT AT 1900. PATIENT'S SON CALLED. UPDATED ON POC. ANSWERED ALL QUESTIONS, SON VERBALIZED UNDERSTANDING. WILL FACETIME WITH HIM AT 0500.
--- NOTE | 2021-07-03 12:01 | NUR ---
1045HRS - LEFT FOR MRI 1115HRS - RETURNED FROM MRI 1201HRS - CPAP TRIAL, 6 OVER 6.
--- NOTE | 2021-07-03 14:24 | NUR ---
Chart review, discussed during unite rounds with pulmonary. MD have been in contact with her son, family wants to talk with nerurology before making any changes on tx. No anticipated dc. On vent, nutritional support. out of enhanced isolation. Bedside nurse have provided updates to son and daughter in law. Will cont. following as needed for dc needs.
--- NOTE | 2021-07-03 15:24 | NUR ---
1520HRS - PT'S SON CALLED AND INFORMED OF PT STATUS AND CONDITION. REPORTED MRI AND ULTRASOUND COMPLETED. REPORTED ON HER FAILED CPAP TRAIL. REPORTED VENT SETTINGS FIO2 40%. PT WANTED RT TO BRING HER BACK TO 30% DUE TO POSSIBILITY OF GOING BACKWARDS IN TREATMENT. REPORTED OF HER BEING OFF OF ISOLATION.
--- NOTE | 2021-07-03 16:28 | NUR ---
1628HRS - PT'S SON VISITED AND AT BEDSIDE.
[2021-07-04] VITALS (24 sets, daily range): BP systolic 110–154; BP diastolic 51–82
--- NOTE | 2021-07-04 03:55 | NUR ---
PT IS DROWSY BUT WITH REPOSITIONING HER SHE OPENS HER EYES. DOESNT APPEAR TO BE IN ANY PAIN NOTED. RESTING COMFORTABLEY DURING THE NIGHT LUNGS ARE CLEAR TO DIMINISHED. REMAINS ON THE VENT. CAAL TO DD WITH CLEAR YELLOW URINE PRESENT. NO BM NOTED. TOLERATING TUBE FEEDING SMALL RESIDUAL NOTED OF 30CC PRESENT. PT HAS BOOTS ON AND SCDS AND ON AT THIS TIME. ACCU CHECKS CHARTED SEE FLOW SHEET IN LABS. DOES NOT PULL AT LINES OR DEVICES AT THIS TIME SO REMAINS UNRESTRAINED AT THIS TIME WITH CARE. ONGOING NURSING CARE AT THIS TIME.
[2021-07-04 05:22] LABS: HEMATOCRIT 26.6 % (37.0-47.0); HEMOGLOBIN 8.7 gm/dL (12.0-15.0); MCHC 32.9 g/dL (28.0-37.0); MCV 85.2 fL (80.0-100.0); RBC 3.12 mil/uL (4.20-5.00); RDW 14.2 % (10.5-14.5); WBC 7.8 thou/uL (4.0-11.0)
[2021-07-04 05:39] LABS: CALCIUM 8.2 mg/dL (8.5-10.1); CREATININE 0.7 mg/dL (0.6-1.0); POTASSIUM 3.9 mmol/L (3.5-5.1)
--- NOTE | 2021-07-04 15:25 | NUR ---
ASSUMED CARE AT SHIFT CHANGE. PT IS NOT SEDATED, WILL OPEN EYES TO VERBAL STIMULI AND FOLLOW COMMANDS AT TIMES. PT SON AT BEDSIDE MOST OF THE DAY, UPDATED ON POC. ASSESSMENTS PER CHART. PLAN FOR NEURO TO SPEAK WITH SON REGARDING POC TOMORROW BEFORE MAKING PLANS FOR TRACH PLACEMENT,PER DR REDD. PT HAD SWELLING OF LIPS AND TOUNGE THIS MORNING AROUND 1000, DR REDD NOTIFIED. PHARMACY REVIEWED MEDS AND FOUND NO OBVIOUS CAUSE, NO OTHER SYMPTOMS OF AN ALLERGIC REACTION NOTED. WILL CONT TO MONITOR AND FOLLOW POC.
[2021-07-05] VITALS (23 sets, daily range): BP systolic 123–176; BP diastolic 69–93
[2021-07-05 04:57] LABS: HEMATOCRIT 26.3 % (37.0-47.0); HEMOGLOBIN 8.7 gm/dL (12.0-15.0); MCH 28.3 pg (26.0-34.0); MCV 85.7 fL (80.0-100.0); RBC 3.07 mil/uL (4.20-5.00); RDW 14.1 % (10.5-14.5); WBC 7.4 thou/uL (4.0-11.0)
[2021-07-05 05:24] LABS: CALCIUM 8.3 mg/dL (8.5-10.1); CREATININE 0.7 mg/dL (0.6-1.0); POTASSIUM 4.1 mmol/L (3.5-5.1)
--- NOTE | 2021-07-05 09:08 | NUR ---
SON AT BEDSIDE AT 0830, ANSWERED ALL QUESTIONS PER POC DAUGHTER IN LAW AT BEDSIDE AT 0845, ANSWERED ALL QUESTIONS PER POC DR. LOTT AT BEDSIDE AT 0900, LOOKED OVER SCANS AND CHART AND EXAMINED THAT PT AND WENT TO FAMILY ROOM TO SPEAK TO THE FAMILY REGARDING FUTURE PLANS FOR THE PATIENT AND TO GO OVER WHAT THE CT AND MRI SCANS ARE SHOWING REGARDING THE PT'S STROKE
[2021-07-05 14:39] LABS: CHOLESTEROL 168 mg/dL (<200); HDL CHOLESTEROL 42 mg/dL (>40); LDL CHOLESTEROL 106 mg/dL (<100); TRIGLYCERIDE 103 mg/dL (<150); VLDL 21 mg/dL (<40)
[2021-07-05 14:43] LABS: SERUM ASSESSMENT Clear
--- NOTE | 2021-07-05 23:30 | NUR ---
This RN took patient to CT at 2230 with RT and another RN per Dr. Arriola. Awaiting results. Will continue to monitor.
[2021-07-06] VITALS (19 sets, daily range): BP systolic 106–177; BP diastolic 62–97
[2021-07-06 04:40] LABS: APTT 21.1 Seconds (24.5-32.8); PROTIME 10.9 Seconds (10.5-12.1)
[2021-07-06 04:58] LABS: CALCIUM 8.5 mg/dL (8.5-10.1); CREATININE 0.6 mg/dL (0.6-1.0); HEMOGLOBIN 8.5 gm/dL (12.0-15.0); MCH 28.1 pg (26.0-34.0); MCHC 32.6 g/dL (28.0-37.0); MCV 86.1 fL (80.0-100.0); POTASSIUM 4.1 mmol/L (3.5-5.1); RBC 3.02 mil/uL (4.20-5.00); RDW 14.4 % (10.5-14.5); WBC 7.1 thou/uL (4.0-11.0)
--- NOTE | 2021-07-06 06:26 | NUR ---
This RN transferred patient to bed 250.
--- NOTE | 2021-07-06 09:59 | 2DMMODE ---
[facility] [place] [address] 2 D/M-MODE ECHOCARDIOGRAM Name: DURGA ALMANZA Room #: 250-P ADM IN M.R.#: [id number] Admission: 06/18/21 Attend Phys: Alli Blancas DO Discharge: Date of : 53 Report #: [id number] THIS REPORT FOR: cc: Jose E Pope John E. DO Santiago, Patrick MD [facility] ~ ADDENDUM APPROVED REPORT Study performed: 07/06/2021 08:28:34 EXAM: Comprehensive 2D, Doppler, and color-flow Echocardiogram Patient Location: ICU Room #: 250 Status: routine BSA: 1.78 HR: 103 bpm BP: 160/86 mmHg Rhythm: Tachycardia Other Information Study Quality: Good/patient on vent Indications Stroke. Hx: CABG, DM, HTN, HLP, COVID-19 (06/2021). 2D Dimensions RVDd: 34.14 mm IVSd: 12.43 (7-11mm) LVOT Diam: 19.58 (18-24mm) LVDd: 35.39 mm PWd: 11.56 (7-11mm) Ascending Ao: 34.18 (22-36mm) LVDs: 21.87 (25-40mm) Left Atrium: 25.56 (27-40mm) Aortic Root: 30.60 mm Volumes Left Atrial Volume (Systole) Single Plane 4CH: 72.39 mL Single Plane 2CH: 61.50 mL LA ESV Index: 41.00 mL/m2 Aortic Valve AoV Peak Mp.: 1.61 m/s AO Peak Gr.: 10.32 mmHg LVOT Max P.36 mmHg LVOT Max V: 1.36 m/s [facility] [place] [address] 2 D/M-MODE ECHOCARDIOGRAM Name: DURGA ALMANZA Room #: [address] [place] [address] IN [facility]#: [id number] Admission: 06/18/21 Attend Phys: Tabatha Randall Discharge: Date of : 53 Report #: [id number] MATTHEW Vmax: 2.54 cm2 Mitral Valve E/A Ratio: 0.8 MV Decel. Time: 124.84 ms MV E Max Mp.: 0.67 m/s MV A Mp.: 0.79 m/s MV PHT: 36.20 ms IVRT: 89.97 ms Pulmonary Valve PV Peak Mp.: 1.27 m/s PV Peak Gr.: 6.44 mmHg Pulmonary Vein P Vein S: 0.88 m/s P Vein D: 0.48 m/s P Vein S/D Ratio: 1.83 Tricuspid Valve TR Peak Mp.: 3.19 m/s RAP Estimate: 5.00 mmHg TR Peak Gr.: 41.00 mmHg PA Pressure: 46.00 mmHg Left Ventricle The left ventricle is normal size. There is normal LV segmental wall motion. Mild concentric left ventricular hypertrophy. Left ventricular systolic function is hyperdynamic. LVEF is 65-70%. Mild diastolic dysfunction is present (impaired relaxation pattern). Right Ventricle The right ventricle is normal size. The right ventricular systolic function is normal. Atria Left atrium is dilated. The right atrium size is normal. Aortic Valve The aortic valve is normal in structure. No aortic regurgitation is present. There is no aortic valvular stenosis. Mitral Valve The mitral valve is normal in structure. Trace mitral regurgitation. No evidence of mitral valve stenosis. Tricuspid Valve [facility] [address] [place] [address] 2 D/M-MODE ECHOCARDIOGRAM Name: DURGA ALMANZA Room #: 250-[facility] IN .R.#: [id number] Admission: 06/18/21 Attend Phys: Tabatha Randall Discharge: Date of : 53 Report #: [id number] The tricuspid valve is normal in structure. Mild to moderate tricuspid regurgitation. Estimated PAP is 46mmHg. Pulmonic Valve The pulmonary valve is normal in structure. Trace pulmonic regurgitation. Great Vessels The aortic root is normal in size. The ascending aorta is normal in size. IVC is normal in size and collapses >50% with inspiration. Pericardium There is no pericardial effusion. <Conclusion> Normal left ventricular size with mild concentric hypertrophy Hyperdynamic systolic function ejection fraction 65-70% Grade 1 diastolic dysfunction Normal right ventricular size/function none Normal atrial size Color-flow Doppler study was performed of the aortic/mitral/tricuspid/pulmonary valve None normal aortic/mitral valve structure and function Mild to moderate tricuspid valve insufficiency Pulmonary systolic pressure estimated 46 mmHg No pericardial effusion Normal aortic root size Negative bubble study for ASD/VSD <ELECTRONICALLY SIGNED> By: Conor Bey MD, FACC 07/06/21958 8 8 Conor Bey MD, FACC /INF
--- NOTE | 2021-07-06 13:42 | NUR ---
Chart review, discussed during am unite rounds and LOS. Vent, nutritional support. Out of isolation r/t COVID. Son was at bedside nurse am unite rounds. Will cont. followings needed for dc needs. Will cont following as needed for dc needs.
[2021-07-07] VITALS (41 sets, daily range): BP systolic 112–190; BP diastolic 74–108
--- NOTE | 2021-07-07 11:09 | NUR ---
Nutrition: When tube feeds resume post PEG, REC Jevity 1.5 at 45 mL/hr with prior water flush order of 300 mL H20 q 6 hrs, beneprotein added.
--- NOTE | 2021-07-07 18:12 | NUR ---
PATIENT HAD TRACH AND PEG PLACED BY DR LEVI TODAY. PATIENT TOLERATING PROCEDURE WELL. PATIENT TO BE STARTED ON TUBE FEEDS THIS EVENING. DR WALLS SPOKE WITH SON FILIPE ABOUT PATIENT STATUS. SON AT BEDSIDE DURING THE DAY TODAY. PATIENT HAS 8.0 XL SHILEY TRACH. CONTINUES ON FIO2 30% AND PEEP OF 6.
[2021-07-08] VITALS (24 sets, daily range): BP systolic 104–176; BP diastolic 63–105
--- NOTE | 2021-07-08 01:57 | NUR ---
PT PROGRESSING TOWARDS D/C GOALS. VSS T 99.9. BP MODERATELY ELEVATED AT START OF SHIFT. BP CAME DOWN AFTER METOPROLO PER G-TUBE GIVEN. PT RESTING QUIETLY ON CURRENT VENT SETTINGS. PT OPENS EYES IN REPONSE TO LOUD VOICE OR TOUCH. SUCTIONING THIVK CASTANO SPUTUM. MULTIPLE BRUISES NOTED ON ABDOMINAL AREA FORM INJECTIONS. CONT. POC. BED DOWN CALL LIGHT IN REACH, BED ALARM IS ON. ICU MONITORS ARE ON. SR ON HT MONITOR. SATS 98% CURRENTLY. WILL CONTINUE TO MONITOR PT FOR CHANGES.
[2021-07-08 05:02] LABS: PCO2 39.1 mmHg (35.0-45.0); PO2 74.1 mmHg (80.0-100.0); pH 7.457 (7.360-7.450); sO2 95.6 % (92.0-98.0)
[2021-07-08 05:23] LABS: ABSOLUTE NEUTROPHILS 9.3 thou/uL (1.4-8.2); BASOPHILS 0.4 % (0.0-2.0); EOSINOPHILS 1.1 % (0.0-3.0); HEMATOCRIT 26.6 % (37.0-47.0); HEMOGLOBIN 8.7 gm/dL (12.0-15.0); MCH 28.1 pg (26.0-34.0); MCHC 32.7 g/dL (28.0-37.0); MCV 85.9 fL (80.0-100.0); PLATELET COUNT 183 thou/uL (150-400); POLYS 86.5 % (36.0-66.0); RBC 3.09 mil/uL (4.20-5.00); RDW 14.8 % (10.5-14.5); WBC 10.8 thou/uL (4.0-11.0)
[2021-07-08 05:45] LABS: ALBUMIN 2.6 g/dL (3.4-5.0); CALCIUM 8.5 mg/dL (8.5-10.1); CREATININE 0.7 mg/dL (0.6-1.0); TOTAL BILIRUBIN 0.5 mg/dL (0.2-1.0)
--- NOTE | 2021-07-08 05:48 | NUR ---
PT IS RESTING QUIETLY . VSS AFEBRILE THIS AM .NO S/S DISTRESS PRESENTLY ON CURRENT VENT SETTINGS.
--- NOTE | 2021-07-08 14:34 | NUR ---
Chart review, discussed during am unite rounds. Got trach and peg yesterday, still requiring vent support. Ct ordered for today per rounds. Will need to wean for week and documentation from MDs in progress notes before [employer] will auth LTAC. Cm passed on information to MD's.
--- NOTE | 2021-07-08 15:38 | H ---
[facility] [place] [address] HISTORY AND PHYSICAL Name: DURGA ALMANZA Room #: 250-P ADM IN M.R.#: [id number] Admission: 06/18/21 Attend Phys: Alli Blancas DO Discharge: Date of : 53 Report #: [id number] THIS REPORT FOR: cc: Jose E Pope John E. DO Knox, Douglas MD FAAFP FACEP ~ cc: Alli Blancas DO DATE OF SERVICE: 06/19/2021 CHIEF COMPLAINT: COVID pneumonia. HISTORY OF PRESENT ILLNESS: The patient is a 66-year-old black female with COVID-19 viral infection, symptomatic with upper respiratory infection, progressive shortness of breath for some 5 days prior to this admission, seen in the Emergency Room. She is admitted to the Intensive Care Unit on high-flow O2, has used to intervals of BiPAP. She is alert and communicative. PAST MEDICAL HISTORY: Cardiac bypass in 2016, pneumothorax requiring chest tube in 2014, chronic lumbar pain, kidney stones, diabetes mellitus, controlled, B12 deficiency, coronary artery disease, hypertension, hyperlipidemia. HOME MEDICATIONS: Gabapentin 300 mg 1 p.o. t.i.d., metformin 500 mg 1 p.o. b.i.d., aspirin 325 mg p.o. daily, Effient 10 mg p.o. daily, vitamin D 1000 international units p.o. daily, phentermine 37.5 mg q.a.m., diazepam 5 mg p.o. daily p.r.n., rosuvastatin 10 mg 1 p.o. q.p.m., metoprolol succinate 25 mg 1 p.o. daily, olmesartan 40 mg 1 p.o. daily, losartan 25 mg 1 p.o. daily. ALLERGIES: No known drug allergies. SOCIAL HISTORY: Nonsmoker, nondrinker, lives at home, has a son in the [place] area. FAMILY HISTORY: Noncontributory. REVIEW OF SYSTEMS: GENERAL: She had fever, chills, nausea, vomiting. No diarrhea. EYES: No visual changes. ENT: No problems with hearing, swallow, taste or smell. CARDIOVASCULAR: Chest congestion, exertional dyspnea. RESPIRATORY: COVID-19 pneumonia. GASTROINTESTINAL: No abdominal pain, some nausea and vomiting. MUSCULOSKELETAL: Arthritic changes. GENITOURINARY: No problems urinating. NEUROLOGIC: No paresis, paralysis, paresthesias. PSYCHIATRIC: Frustrated, not depressed. [facility] [address] [place] [address] HISTORY AND PHYSICAL Name: DURGA ALMANZA Room #: [facility] IN [facility]#: [id number] Admission: 06/18/21 Attend Phys: Alli Blancas, Discharge: Date of : 53 Report #: [id number] DERMATOLOGIC: No disturbing lesions or rash. Remainder of system review is negative. OBJECTIVE: VITAL SIGNS: Temperature is 37.1, pulse 128, respirations 15, blood pressure 173/108, pulse ox on room air 78%. She was placed on high-flow cannula. She weighs 77.11 kilograms or 170 pounds. She appears fatigued. GENERAL: She is communicative and answers questions appropriately. HEENT: Pupils are equal, round, reactive to light and accommodation. Extraocular muscles intact. Pharynx unremarkable. NECK: Supple. COR: S1, S2 CHEST: Scattered coarse breath sounds. ABDOMEN: Soft, nontender. EXTREMITIES: No edema. NEUROLOGIC: She is intact without focal neurologic deficit. LABORATORY DATA: CBC: White count 6.2, hemoglobin 13.1, hematocrit 40.0, platelets 260,000. Differential on the white count, 71% segmented neutrophils, 4% band forms, 9% monocytes. Serum chemistry: Sodium 136, potassium 3.4, chloride 98, CO2 28, anion gap 10, BUN 19, creatinine 1.1, estimated glomerular filtration rate 60, glucose 97, calcium 9.1, total bilirubin 0.7, AST 73, ALT 31, alkaline phosphatase 168. Troponin less than 0.06. Total protein 8.1, albumin 2.7. D-dimer 5.23. Chest x-ray showed patchy bilateral pulmonary infiltrates and opacities, cardiomegaly with vascular congestion. A CT scan of the chest showed no evidence for definite central pulmonary artery embolism, extensive bilateral predominantly ground-glass infiltrates consistent with extensive bilateral COVID-19 pneumonitis/pneumonia. No evidence of pneumothorax or pleural effusion. ASSESSMENT AND PLAN: COVID pneumonia, acute respiratory failure, type 2 diabetes, coronary artery disease, hypertension. PLAN: Admit to the hospital to the ICU. COVID-19 protocol. Add Zithromax. Supplemental O2. ID and Pulmonary consults working. <ELECTRONICALLY SIGNED> By: Erick Ayers MD, FAAFP, FACEP 07/08/21 [id number] Erick Ayers MD, FAAFP, FACEP /nt
[2021-07-09] VITALS (21 sets, daily range): BP systolic 106–175; BP diastolic 64–102
--- NOTE | 2021-07-09 06:27 | NUR ---
Stable through the night. No events to report. See documentation on interventions for assessment details. No family called. No am labs. Patient is progressign slowly towards goals.
--- NOTE | 2021-07-09 12:33 | NUR ---
PT'S SON FILIPE AT BEDSIDE AT 0830 AND I UPDATED HIM PER POC PT WENT FOR CT OF THE HEAD AT 0900 I CALLED PT SON AT 0945 TO LET HIM KNOW THE PT WAS BACK IN THE ROOM. SPOKE TO PT'S SON AT 1130 TO LET HIM KNOW THE CT WAS UNCHANGED
--- NOTE | 2021-07-09 15:27 | NUR ---
Discussed during am unite rounds. Trach and peg. went for ct of head today. CM spoke with lorena britton via phone, education on LTAC list of choice and LTC if needed in the future. No [facility], no [facility], would [facility], thank you for calling and everyone helping mom per lorena britton # [phone]. No anticipated dc over the weekend, will cont following as needed for dc needs.
--- NOTE | 2021-07-09 17:37 | NUR ---
SON AT BEDSIDE AT 1600. ANSWERED ALL QUESTIONS PER POC.
[2021-07-10] VITALS (17 sets, daily range): BP systolic 117–176; BP diastolic 71–105
[2021-07-10 06:45] LABS: ABSOLUTE NEUTROPHILS 5.5 thou/uL (1.4-8.2); BASOPHILS 0.5 % (0.0-2.0); EOSINOPHILS 1.9 % (0.0-3.0); HEMATOCRIT 25.7 % (37.0-47.0); HEMOGLOBIN 8.2 gm/dL (12.0-15.0); LYMPHOCYTES 11.9 % (24.0-44.0); MCH 27.8 pg (26.0-34.0); MCHC 32.1 g/dL (28.0-37.0); MCV 86.8 fL (80.0-100.0); MONOCYTES 6.5 % (1.0-8.0); PLATELET COUNT 152 thou/uL (150-400); POLYS 79.2 % (36.0-66.0); RBC 2.96 mil/uL (4.20-5.00); RDW 15.1 % (10.5-14.5); WBC 6.9 thou/uL (4.0-11.0)
[2021-07-10 06:54] LABS: CALCIUM 8.6 mg/dL (8.5-10.1); CREATININE 0.7 mg/dL (0.6-1.0); POTASSIUM 3.5 mmol/L (3.5-5.1)
--- NOTE | 2021-07-10 14:21 | NUR ---
PT TRANSFERRED TO CCU WITH BELONGINGS. SILVER RING, PARTIEAL DENTURES, ELECTRONIC BASIC COMBATANT SWIMMER, SANDALS, PURSE, CELL PHONE, UNDERWEAR, AND SHIRT. REPORT GIVEN TO YONIS. TRANSFERRED VIA BED WITH VENTILATOR.
--- NOTE | 2021-07-10 15:40 | NUR ---
CALLED TANNER DENT TO NOTIFY OF PT TRANSFER AT 1415.
--- NOTE | 2021-07-10 15:41 | NUR ---
Pt now on CCU today. Son Luis Armando at bedside. Vent weaning trials continue. Pt has trach/peg placed on 07/07. ICU cm discussed ltac referrals/options with son yesterday and they are interested in [facility]. Pt's ins plan will need clinical documentation of weaning trials after 7 days after trach/21 days on the vent. Discussed with [facility]. They requested face sheet and clinical today and updatese on early next week. Referral faxed.
--- NOTE | 2021-07-10 18:02 | NUR ---
PT ARRIVED TO UNIT APPROX 1450 BY ICU STAFF. PT NONVERBAL, AROUSES TO VERBAL AND TACTILE STIMULI. VENT SETTINGS: TV 500 A/C 18 PEEP 6 FIO2 30. PT SUCTIONED FIORELLA WELL. SON AT BEDSIDE UPDATED ON POC. FEEDING CONT, PT FIORELLA WELL. CONT CURRENT POC, WILL PASS REPORT TO NOC RN
[2021-07-11 00:15] VITALS: BP 153/88
[2021-07-11 04:28] VITALS: BP 142/90
[2021-07-11 07:36] VITALS: BP 136/80
--- NOTE | 2021-07-11 07:47 | NUR ---
ASSUMED CARE OF PT AT 1900, PT IS NONVERBAL TRACHED ON VENT. PT IS ABLE TO OPEN EYES BY COMMAND AND HAS SPONTANEOUS MOVEMENT OF RIGHT LEG. ASSESSMENT COMPLETED NOTED. CAAL, RECTAL TUBE AND TRACH IN PLACE. WILL CONTINUE TO WORK TOWARDS PT'S POC.
[2021-07-11 11:22] VITALS: BP 170/96
--- NOTE | 2021-07-11 12:29 | NUR ---
Pt BP elevated on VS rounds SBP>160. Treated with PRN Hydralazine and 45m post IV administration pt BP 154/85. Improved.
[2021-07-11 15:06] VITALS: BP 159/87
[2021-07-11 19:57] VITALS: BP 148/86
--- NOTE | 2021-07-11 23:58 | NUR ---
PT REMAIN ALERT. SON AT THE BEDSIDE UNTIL 2100. VSS, AFEBRILE. SR PER MONITOR. VENT SETTINGS: TV 500, PEEP 6, FI02 30%, RATE 18. COPIOUS AMT OF ORAL SECRETIONS, CLEAR TO LIGHT YELLOW. PT RESIST ORAL CARE AND ORAL SUCTIONING. RIGHT IJ TL INTACT, ADEQUATE AMT OF URINE OUTPUT PER CAAL. JEVITY 1.5 AT GOAL OF 45ML/HR WITH 300 H20 BOLUS EVERY 6 HRS. RESIDUALS SMALL. TOLERATING TF. UPPER EXTREMITIES SWOLLEN, ELEVATED ON PILLOWS. POOR PROGRESS TOWARDS DC GOALS. WILL CONTINUE TO MONITOR.
[2021-07-12 04:02] VITALS: BP 133/74
[2021-07-12 04:28] LABS: ABSOLUTE NEUTROPHILS 4.7 thou/uL (1.4-8.2); BASOPHILS 0.2 % (0.0-2.0); EOSINOPHILS 1.3 % (0.0-3.0); HEMATOCRIT 24.3 % (37.0-47.0); HEMOGLOBIN 7.8 gm/dL (12.0-15.0); LYMPHOCYTES 11.4 % (24.0-44.0); MCH 27.6 pg (26.0-34.0); MCV 86.3 fL (80.0-100.0); MONOCYTES 8.1 % (1.0-8.0); PLATELET COUNT 159 thou/uL (150-400); RBC 2.82 mil/uL (4.20-5.00); RDW 14.6 % (10.5-14.5); WBC 5.9 thou/uL (4.0-11.0)
[2021-07-12 04:32] LABS: CALCIUM 8.5 mg/dL (8.5-10.1); CREATININE 0.6 mg/dL (0.6-1.0); POTASSIUM 3.7 mmol/L (3.5-5.1)
--- NOTE | 2021-07-12 06:43 | NUR ---
ASSUMED CARE OF PT AT 0100 PT REMAINS TRACHED ON THE VENT, PEG TUBE IN PLACE. ASSESSMENT COMPLETED NOTED. PT WAS ABLE TO OPEN MOUTH UPON COMMAND X1 AND TRACK NURSE X ONE. WILL CONTINUE TO WORK TOWARDS PT'S POC.
[2021-07-12 08:00] VITALS: BP 136/78
[2021-07-12 10:57] LABS: % SATURATION 15 % (20-39); IRON 50 ug/dL (50-170); TIBC 324 ug/dL (250-450)
[2021-07-12 12:27] VITALS: BP 144/82
[2021-07-12 16:00] VITALS: BP 128/71
[2021-07-13 04:29] VITALS: BP 135/93
[2021-07-13 05:26] LABS: ALBUMIN 2.6 g/dL (3.4-5.0); CALCIUM 8.7 mg/dL (8.5-10.1); CREATININE 0.6 mg/dL (0.6-1.0); POTASSIUM 3.9 mmol/L (3.5-5.1); TOTAL BILIRUBIN 0.6 mg/dL (0.2-1.0); TOTAL PROTEIN 6.3 g/dL (6.4-8.2)
[2021-07-13 07:20] VITALS: BP 169/105
[2021-07-13 11:15] VITALS: BP 105/65
--- NOTE | 2021-07-13 13:59 | NUR ---
Clinical updated faxed to [facility]. They will need additional update in 1-2 days on weaning trials before submitting auth request to the ins plan. Will follow.
[2021-07-13 15:10] VITALS: BP 152/84
[2021-07-13 20:00] VITALS: BP 171/98
--- NOTE | 2021-07-14 00:09 | NUR ---
patients cares were assumed at shift change. patient assessed and meds were passed. tube feeding bags changed and patient cleaned up for bed. washed her face and did oral care. scd's placed on leg at hs. rounds were done. room was strighten. bed alarm on and the bed is in a low and locked position
[2021-07-14 00:11] VITALS: BP 97/56
[2021-07-14 03:32] LABS: ABSOLUTE NEUTROPHILS 3.9 thou/uL (1.4-8.2); BASOPHILS 0.5 % (0.0-2.0); EOSINOPHILS 4.7 % (0.0-3.0); HEMOGLOBIN 8.4 gm/dL (12.0-15.0); LYMPHOCYTES 13.6 % (24.0-44.0); MCH 28.2 pg (26.0-34.0); MCHC 32.3 g/dL (28.0-37.0); MCV 87.2 fL (80.0-100.0); PLATELET COUNT 186 thou/uL (150-400); POLYS 69.2 % (36.0-66.0); RBC 2.98 mil/uL (4.20-5.00); RDW 15.6 % (10.5-14.5); WBC 5.6 thou/uL (4.0-11.0)
[2021-07-14 03:41] LABS: CALCIUM 8.7 mg/dL (8.5-10.1); CREATININE 0.6 mg/dL (0.6-1.0); POTASSIUM 3.6 mmol/L (3.5-5.1)
[2021-07-14 04:00] VITALS: BP 134/80
[2021-07-14 07:40] VITALS: BP 160/89
[2021-07-14 11:55] VITALS: BP 151/88
[2021-07-14 16:30] VITALS: BP 147/92
[2021-07-14 19:15] VITALS: BP 150/90
[2021-07-15] VITALS (7 sets, daily range): BP systolic 124–164; BP diastolic 75–87
--- NOTE | 2021-07-15 02:39 | NUR ---
ASSUMED PT CARE AT 1900, PT IS ABLE TO WIGGLE TOES AND FINGERS ON COMMAND, SUCTIONED PRN WITH MEDIUM SECRETIONS, MODERATE ORAL SECRETIONS, NO ACUTE DISTRESS NOTED, SR ON TELE, VSS, MEDS GIVEN PER JAN, TF AT GOAL, NO RESIDUAL NOTED, LOVENOX DC PER PROVIDERS ORDER, FREQUENT ROUNDING; NO ACUTE DISTRESS NOTED, PROGRESSING SLOWLY TOWARDS POC
[2021-07-15 04:42] LABS: ALBUMIN 2.4 g/dL (3.4-5.0); CALCIUM 8.7 mg/dL (8.5-10.1); CREATININE 0.6 mg/dL (0.6-1.0); POTASSIUM 3.6 mmol/L (3.5-5.1); TOTAL BILIRUBIN 0.4 mg/dL (0.2-1.0); TOTAL PROTEIN 5.9 g/dL (6.4-8.2)
[2021-07-15 05:06] LABS: ABSOLUTE NEUTROPHILS 2.9 thou/uL (1.4-8.2); BASOPHILS 0.5 % (0.0-2.0); EOSINOPHILS 4.3 % (0.0-3.0); HEMATOCRIT 25.1 % (37.0-47.0); HEMOGLOBIN 8.1 gm/dL (12.0-15.0); LYMPHOCYTES 14.5 % (24.0-44.0); MCH 28.4 pg (26.0-34.0); MCHC 32.4 g/dL (28.0-37.0); MCV 87.6 fL (80.0-100.0); MONOCYTES 15.2 % (1.0-8.0); PLATELET COUNT 185 thou/uL (150-400); POLYS 65.5 % (36.0-66.0); RBC 2.86 mil/uL (4.20-5.00); RDW 16.1 % (10.5-14.5); WBC 4.4 thou/uL (4.0-11.0)
--- NOTE | 2021-07-15 14:51 | NUR ---
Faxed updated clinical to [facility]. Patient cont on vent. She is not able to consent for treatment. Son making decisions for treatment plan. [facility] reports they have senior care unweanable vent unit. Will need son to be in process of seeking guardianship. If patient unable to wean may need to transfer to their unweanable unit. Son would need to be guardian for finacial for possible medicaid application. Left message with son to call casemgt.
--- NOTE | 2021-07-15 17:23 | NUR ---
PT NON VERBAL VENT/TRACH. PT CAN FOLLOW SIMPLE COMMANDS. VSS, CAAL AND FMS TO DD. IVF INFUSING PER ORDER. TUBE FEEDING PER PEG TOLERATING WELL. PT SON AT BEDSIDE THIS MORNING. WILL CONTINUE TO MONITOR.
--- NOTE | 2021-07-16 04:02 | NUR ---
assessments as charted, non-verbal able to node yes or no, follows simple commands, sr on tele, low grade fever, tyl given, denies pain, tube feeding infusing at goal, no residuals, bs stable, no insulin coverage needed, bp stable, will continue to monitor closely per poc
[2021-07-16 05:00] VITALS: BP 157/91
[2021-07-16 07:54] VITALS: BP 155/76
[2021-07-16 11:25] VITALS: BP 145/73
[2021-07-16 15:38] VITALS: BP 129/75
[2021-07-16 16:34] LABS: URINE BILIRUBIN NEGATIVE (Negative); URINE BLOOD TRACE (Negative); URINE CLARITY CLEAR; URINE COLOR YELLOW; URINE GLUCOSE-RANDOM* NEGATIVE (Negative); URINE KETONES NEGATIVE (Negative); URINE LEUKOCYTES-REFLEX TRACE (Negative); URINE NITRITE-REFLEX NEGATIVE (Negative); URINE PROTEIN (DIPSTICK) NEGATIVE (Negative); URINE SPECIFIC GRAVITY 1.015 (1.005-1.035); URINE UROBILINOGEN 0.2 E.U./dl (0.2-1.0)
--- NOTE | 2021-07-16 17:16 | NUR ---
ASSUMED CARE SHIFT CHANGE. VSS. DENIES PAIN. PT MORE ALERT, FOLLOWS COMMANDS, NODS HEAD TO YES/NO QUESTIONS. PT WORKED WITH PHYS THERAPY/OT TODAY FIORELLA FAIR. SON AT BEDSIDE UPDATED ON POC. UA/SPUTUM SAMPLES TODAY REFER TO RESULTS. VENT SETTINGS REMAIN. CULTURE TAKEN OF TRACH STOMA SENT TO LAB. PT SUCTIONED THROUGHOUT SHIFT FIORELLA WELL. TURNS FIORELLA. UOP/BM ADEQUATE OUTPUT. CONT POC. WILL PASS REPORT TO ANDRES SOLIS.
--- NOTE | 2021-07-16 17:35 | NUR ---
[facility] liason indicates they can not consider the pt until pt's son has initiated emergency guardianship/court date in place. They will need a letter from his analysis internship. They are concerned that the pt may need director long term care intermediate care with vent dependence. They can offer this but will need a legal guardian who can apply for medicaid and make decisions for the pt. Pt has breif cpap trial yesterday. Will f/u with son to see if he has secured an analysis internship.
[2021-07-16 19:44] VITALS: BP 151/87
--- NOTE | 2021-07-17 03:06 | NUR ---
ASSUMED PT CARE AT 1900, SON AT BEDSIDE, PT FOLLOW SIMPLE COMMANDS, DENIES PAIN, NODES TO YES/NO QUESTIONS, MEDS GIVEN PER MAR, TF INFUSING AT GOAL, NO RESIDUAL, VENT SETTINGS UNCHANGED, 02SATS STABLE, NO ACUTE DISTRESS NOTED, PROGRESSING SLOWLY TOWARDS POC
[2021-07-17 04:20] VITALS: BP 149/86
[2021-07-17 05:19] LABS: ABSOLUTE NEUTROPHILS 2.7 thou/uL (1.4-8.2); BASOPHILS 0.5 % (0.0-2.0); EOSINOPHILS 2.5 % (0.0-3.0); HEMATOCRIT 24.3 % (37.0-47.0); HEMOGLOBIN 7.9 gm/dL (12.0-15.0); MCH 28.7 pg (26.0-34.0); MCHC 32.7 g/dL (28.0-37.0); MCV 87.6 fL (80.0-100.0); MONOCYTES 16.6 % (1.0-8.0); PLATELET COUNT 206 thou/uL (150-400); POLYS 58.4 % (36.0-66.0); RBC 2.77 mil/uL (4.20-5.00); RDW 15.6 % (10.5-14.5); WBC 4.6 thou/uL (4.0-11.0)
[2021-07-17 05:53] LABS: CALCIUM 8.9 mg/dL (8.5-10.1); CREATININE 0.6 mg/dL (0.6-1.0); POTASSIUM 3.2 mmol/L (3.5-5.1)
[2021-07-17 07:00] VITALS: BP 143/74; BP 175/104
[2021-07-17 11:30] VITALS: BP 135/74
--- NOTE | 2021-07-17 12:39 | NUR ---
OT RECEIVED ORDERS FOR "PLEASE EVALUATE IF PT. CAN SEE". CLARIFIED WITH RN, THE ORDERS ARE REGARDING PT. VISION. OT SPOKE WITH P.T., RN, AND OT COLLEAGUE TO DETERMINE APPRPRIATE VISION ASSESSMENT FOR PT. DUE TO CURRENT NEUROLOGICAL AND COGNITIVE STATUS. DETERMINED APPROPRIATE ACTION FOR PT. RESPONDING YES AND NO, PT. CONSISTENTLY RAISING FINGERS OF L HAND FOR "YES" AND CLOSING EYES FOR NO". ASSESSMENT CONCLUDES PT. IS ABLE TO SEE LIGHT, UNABLE TO SEE COLORS, NUMBER OF PEOPLE IN ROOM, OR ITEMS IN ROOM. NOTIFIED RN AND P.T. OF RESULTS. THANK YOU FOR CONSULTING.
[2021-07-17 15:00] VITALS: BP 149/92
--- NOTE | 2021-07-17 15:51 | NUR ---
Pt's son has an commercial attorney and notary coming tomorrow to visit with the pt regarding dpoa for hc and finances. [facility] updated. They will need updated clinical faxed Tuesday along with any legal paperwork. Cm requesting on going therapy evals and tx due to critcal illness/stroke deficits and pt ability to follow commands. Will follow.
--- NOTE | 2021-07-17 17:15 | NUR ---
PT WITH CHRONIC TRACH ON VENT, VENT SETTINGS UNCHANGED. NO WEANING TRIAL WAS ORDERED. PT ABLE TO FSC. POTASSUIM REPLACED PER [facility] PROTOCAL. PT AFEBRILE, ADEQUATE UOP, FMS IN PLACE WITH LIQUID BROWN STOOL, TOLERATING TUBE FEEDINGS THROUGH PEG TUBE. PLAN IS FOR PT'S SON TO BRING IN DEVELOPMENT SCIENTIST AND NOTARY TO POSSIBLY OBTAIN GUARDIANSHIP FOR SON. PT AND SON HAVE BEEN THOUROUGHLY UPDATED AND EDUCATED ON PT CONDITION AND POC. PT NOT PROGRESSING TOWARDS POC.
[2021-07-17 19:37] VITALS: BP 166/90
[2021-07-18 00:01] VITALS: BP 142/72
[2021-07-18 04:31] VITALS: BP 171/91
[2021-07-18 05:43] LABS: CALCIUM 8.7 mg/dL (8.5-10.1); CREATININE 0.6 mg/dL (0.6-1.0); POTASSIUM 3.8 mmol/L (3.5-5.1)
[2021-07-18 06:14] LABS: MCHC 31.9 g/dL (28.0-37.0); MCV 87.8 fL (80.0-100.0); PLATELET COUNT 211 thou/uL (150-400); RBC 2.85 mil/uL (4.20-5.00); RDW 16.1 % (10.5-14.5)
--- NOTE | 2021-07-18 06:35 | NUR ---
ASSUMED PATIENT CARE AT 1900.PATIENT FOLLOW SIMPLE COMMANDS NODS TO YES/NO QUESTIONS.[facility] FIO2.NO VENT CHANGES THROUGHOUT THE SHIFT.SUCTIONED SECRETIONS PRN.WITH PEG TUBE FOR FEEDING WITH FLUSH ORDERED, TOLERATED FEEDING WELL.WITH FECAL MANAGEMENT SYSTEM WITH BROWNISH STOOL.WITH CAAL CATHETER INTACT DRAINING YELLOWISH URINE.ALLL NEEDS ATTENDED.TURNED PATIENT SCHEDULED.
[2021-07-18 07:39] LABS: ABSOLUTE NEUTROPHILS 2.7 thou/uL (1.4-8.2); PLATELET ESTIMATE NORMAL
[2021-07-18 07:59] VITALS: BP 127/68
[2021-07-18 11:21] VITALS: BP 122/73
[2021-07-18 16:01] VITALS: BP 119/71
--- NOTE | 2021-07-18 17:09 | NUR ---
CONT ON VENT AND PER RT, TOLERATED BIPAP MODE TEST FOR ONLY 30 MINUTES. SHE HAS BEEN TURNED Q2. DOES NOT SEEM TO BE IN PAIN. PEG TUBE IN PLACE, CAAL, FMS IN PLACE. WILL CONT WITH PLAN OF CARE.
[2021-07-18 20:15] VITALS: BP 152/75
[2021-07-19 04:45] VITALS: BP 151/86
--- NOTE | 2021-07-19 04:57 | NUR ---
RECEIVED THE PATIENT ON BED, FOLLOWING COMMANDS, NODS TO YES/NO QUESTIONS.ON TRACHEOSTOMY TO MECHANICAL VENTILATOR AT 30% FIO2.NO CHANGES IN THE [facility] VENT SETTINGS IN MY SHIFT.WITH PEG INTACT WITH ONGOING FEEDING AND FLUSH ORDERED.WITH CAAL CATHETER INTACT DRAINING YELLOWISH URINE.WITH FECAL MANAGEMENT SYSTEM INTACT.TURNED PATIENT SCHEDULED.SUCTIONED SECRETIONS PRN.ALL NEEDS ATTENDED.
[2021-07-19 08:32] VITALS: BP 141/76
[2021-07-19 11:33] VITALS: BP 124/75
[2021-07-19 15:19] VITALS: BP 128/75
--- NOTE | 2021-07-19 16:41 | NUR ---
ASSESSMENT CHARTED - MEDS PER MAR - FIORELLA TUBE FEEDING AND WATER FLUSHED. ACCUCHECKS CHARTED - PT REMAIN VENTILATED - LARGE AMOUNTS OF OF SECRETION - CLEAT TO GREEN / THICK - PT MOUTH SUCTIONED MULTIPLE TIMES - TRACH SUCTIONING COMPLETED - PEG TUBE SITE APPEARS C/D/I. FECAL MANAGMENT SYSTEM REMAINS INSITU. PT TURNED - MOUTH CARE GIVEN. DENIES PAIN WHEN ASKED. SON INTO VISIT X 2 TODAY - APPEARS COMFORTABLE AT THE PRESENT TIME.
[2021-07-19 19:27] VITALS: BP 116/69
[2021-07-19 23:38] VITALS: BP 124/80
--- NOTE | 2021-07-20 02:56 | NUR ---
ASSUMED CARE OF PT AT 1900, ASSESSMENT COMPLETED NOTED. PT REMAIN ON VENTILATOR, TRACH IN PLACE, IN NO APPARENT DISTRESS. WILL CONTINUE TO WORK TOWARDS PT'S POC.
[2021-07-20 04:56] VITALS: BP 122/75
[2021-07-20 07:25] VITALS: BP 122/91
[2021-07-20 11:20] VITALS: BP 143/83
[2021-07-20 15:20] VITALS: BP 136/81
--- NOTE | 2021-07-20 15:53 | NUR ---
PT RESTING COMFORTABLY. PT AFEBRILE, ADEQUATE UOP, FMS IN PLACE WITH LIQUID STOOL, PEG TUBE IN PLACE AND TOLERATING TUBE FEED AT GOAL WITH H20 FLUSH. PT ABLE TO FSC, NODS APPROPRIATELY TO QUESTIONS. WEANING TRIAL DONE X2 TODAY, SEE RT DOCUMENTATION. PT AND FAMILY HAVE BEEN THOUROUGHLY UPDATED AND EDUCATED ON PT CONDITION AND POC, PT NOT PROGRESSING TOWARDS POC.
[2021-07-20 20:20] VITALS: BP 120/80
--- NOTE | 2021-07-21 04:11 | NUR ---
ASSUMED CARE OF PT AT 1900, ASSESSMENT COMPLETED NOTED. PT REMAIN ON VENT WITH CURRENT SETTING, TOLERATING WELL. RECTAL TUBE IN PLACE, WITH LEAKAGE MODERATE LEAKAGE NOTED. PT IS ALERT AND ABLE TO ANSWER SIMPLE YES/NO QUESTIONS AND FOLLOW SIMPLE COMMANDS. PEG TUBE IN PLACE AND PATENT, WILL CONTINUE TO WORK TOWARDS PT'S POC.
[2021-07-21 04:27] LABS: ABSOLUTE NEUTROPHILS 4.3 thou/uL (1.4-8.2); BASOPHILS 0.3 % (0.0-2.0); EOSINOPHILS 0.9 % (0.0-3.0); HEMATOCRIT 24.9 % (37.0-47.0); HEMOGLOBIN 8.1 gm/dL (12.0-15.0); LYMPHOCYTES 20.3 % (24.0-44.0); MCH 29.1 pg (26.0-34.0); MCHC 32.7 g/dL (28.0-37.0); MONOCYTES 16.6 % (1.0-8.0); PLATELET COUNT 231 thou/uL (150-400); POLYS 61.9 % (36.0-66.0); RDW 16.4 % (10.5-14.5); WBC 6.9 thou/uL (4.0-11.0)
[2021-07-21 04:39] LABS: ALBUMIN 2.7 g/dL (3.4-5.0); CALCIUM 8.9 mg/dL (8.5-10.1); CREATININE 0.7 mg/dL (0.6-1.0); POTASSIUM 3.7 mmol/L (3.5-5.1); TOTAL BILIRUBIN 0.2 mg/dL (0.2-1.0); TOTAL PROTEIN 6.6 g/dL (6.4-8.2)
[2021-07-21 04:40] VITALS: BP 126/83
[2021-07-21 07:40] VITALS: BP 152/90
[2021-07-21 11:40] VITALS: BP 147/89
--- NOTE | 2021-07-21 13:26 | NUR ---
patient completed DPOA paperwork over weekend. DPOA paperwork in chart. Faxed clinical to [facility], requested they seek auth for LTAC.
[2021-07-21 16:55] VITALS: BP 125/80
--- NOTE | 2021-07-21 18:11 | NUR ---
PT RESTED IN BED AND ON VENTILATOR VIA TRACH. FREQUENT TURNS AND SUCTIONING, ORAL CARE. UPDATE SON AT BEDSIDE AND PT PLANNED TO TRANSFER TO LTAC SOON. WILL CONTINUE TO ASSESS.
[2021-07-21 19:43] VITALS: BP 147/92
[2021-07-22 04:04] VITALS: BP 123/72
[2021-07-22 07:28] VITALS: BP 153/93
--- NOTE | 2021-07-22 08:30 | NUR ---
ASSUMED PT CARE AT 1900, PT IS AWAKE, SON AT BEDSIDE, PT ABLE TO FOLLOW COMMANDS; RESISTS MOUTH CARE AND WILL TRY TO CRAB WITH RIGHT HAND, REMAINS ON VENT AND PEG TUBE FEEDINGS, TOLERATING WELL, REMAINS SR/ST ON TELE, DENIES PAIN, VSS, STILL ALOT OF ORAL SECRETIONS, NODES TO YES/NO QURSTIONS APPROPRIATRLY, FREQUENT ROUNDING ON PT, NO ACUTE DISTRESS NOTED, PASSED ON REPORT TO DAY NURSE
[2021-07-22 11:36] VITALS: BP 117/73
[2021-07-22 14:12] LABS: % SATURATION 16 % (20-39); IRON 47 ug/dL (50-170); TIBC 285 ug/dL (250-450)
[2021-07-22 16:19] VITALS: BP 149/90
--- NOTE | 2021-07-22 16:45 | NUR ---
Updated [facility] cont to await auth with insurance.
--- NOTE | 2021-07-22 17:25 | NUR ---
ASSESSMENT CHARTED MEDS PER JAN - PT DENIES PAIN WHEN ASKED. FIORELLA TUBE FEEDINGS - BOLUS WATER GIVEN ORDERED. PT REMAINS N THE VENT - COPIOUS AMOUNTS OF SECRETIONS. PT DOES NOT LIKE TO BE SUCTIONED. PT TO CAT SCAN THIS AFTERNOON FOR CT OF HEAD. PT TRUNED Q 3-4 HOURS AND PRN. SON INTO VISIT - CONTINUE TO WAIT FOR INSURANCE APPROVAL FOR PT TO BE TRANSFERED TO [facility] - N BY PHYS THERAPY THIS AM. APPEARS TO BE RESTING COMFORTABLY AT THE PRESENT TIME.
[2021-07-22 20:32] VITALS: BP 134/87
[2021-07-23 00:15] VITALS: BP 163/86
[2021-07-23 05:14] VITALS: BP 152/87
[2021-07-23 08:03] VITALS: BP 149/77
[2021-07-23 12:15] VITALS: BP 134/87
--- NOTE | 2021-07-23 15:10 | NUR ---
PT RESTING COMFORTABLY, NO C/O PAIN OR SOB. PT AFEBRILE, ADEQUATE UOP, NO BM, TOLERATING TUBE FEEDINGS AT GOAL WITH MINIMAL RESIDUALS. PT ABLE TO FSC WITH ALL [address] EX[address]ITIES. PEG TUBE IN PLACE. PT AND SON HAVE BEEN THOUROUGHLY UPDATED AND EDUCATED ON PT CONDITION AND POC. PT SLOWLY PROGRESSING TOWARDS POC.
[2021-07-23 15:58] VITALS: BP 144/78
[2021-07-23 19:36] VITALS: BP 133/79
[2021-07-24 04:25] VITALS: BP 155/89
--- NOTE | 2021-07-24 04:58 | NUR ---
PT IS ALERT AND AWAKE. DOESNT LIKE TO BE MESSED WITH JERKS HER HANDS AND FEET AT [facility]. PT HAS COPIOUS GREEN SNOT AND THINK TRACH SUCTIONS NOTED. PT TRACH POPS OFF AND FOUL ODOR SMELL NOTED. SUCTION AND ORAL CARE DONE. DOESNT APPEAR IN PAIN . TOLERATING TUBE FEEDINGS WILL CONTINUE TO ASSESS AND MONITOR PER NURSING AT THIS TIME. ONGOING CARE
[2021-07-24 07:25] VITALS: BP 103/80
[2021-07-24 11:45] VITALS: BP 139/91
--- NOTE | 2021-07-24 12:10 | NUR ---
[employer] denied LTAC due to not enough vent weaning attempts #[address] Ayers for peer to peer.
[2021-07-24 15:50] VITALS: BP 144/87
[2021-07-24 19:35] VITALS: BP 159/94
[2021-07-25 04:28] VITALS: BP 130/74
--- NOTE | 2021-07-25 04:34 | NUR ---
PT IS ALERT AND AGITATIED AT TIMES. MAINTIANS SELF ON THE VENT. NOTIFIED DR. BUITRAGO FOR ONETIME DOSE OF ATIVAN . CALM AFTER MEDS GIVEN MAKES COPIOUS SECREATIONS. SUCTIONED ORAL SECREATIONS. WHITE. LUNGS ARE COARSE. ABDOMEN IS ROUND BOWEL SOUNDS ACTIVE X4. CAAL TO DD WITH YELLOW URINE PRESENT. TURN Q 2 HOURS WITH CARE. TUBE FEEDING INFUSING WITHOUT DIFFICULTY. ONGOING NURSING CARE
[2021-07-25 07:35] VITALS: BP 136/84; BP 179/99
[2021-07-25 11:40] VITALS: BP 125/75
[2021-07-25] MEDS ORDERED: ENOXAPARIN40 MG/0.1 SUBQ (13:03)
--- NOTE | 2021-07-25 13:21 | NUR ---
PT DISCHARGING TODAY TO [facility] FAXED DC ORDERS/SUMMERY TO FACILITY SPOKE WITH SLIME JOHNSON LIASON THAT TRANSPORT ARRANGED BY AMBULANCE FOR 1400 AND LEFT MSG WITH PT'S SON (FILIPE) OF DC AND TIME OF TRANSPORT. UNIT NOTIFIED THAT DC ORDERS FAXED. IF ANY QUESTIONS CALL DC SPIRAL TUBE WINDER HELPER AT [phone].
--- NOTE | 2021-07-25 14:52 | NUR ---
ASSESSMENT CHARTED. PT ON AC VENT. TRACH CARE PROVIDED BY RT. ORDERS GIVEN TO DISCHARGE PT TO LTAC. SON AWARE. REPORT CALLED IN TO THE NURSE. PT LEFT THE FACILITY ON [facility] ACCOMPANIED BY THE SON.
[2021-07-25 16:06] LABS: ANA INTERPRETATION Negative (Negative)
[2021-07-27 21:05] LABS: SYPHILIS AB Non Reactive (Non Reactive)
== END 2021-07-25 14:56 | DRG 4 ==
LOC: ER 18:41 → EROBS 21:26 → 2N 21:26 → ICU 21:26 → 2N 07-10 14:41
PROVIDERS: Emergency Medicine; Internal Medicine; Internal Medicine Pulmonary Disease; Nurse Practitioner; Pediatrics; Psychiatry & Neurology Neurology; Psychiatry & Neurology Neuromuscular Medicine; Specialist; ADMIT Hospitalist; ATTEND Family Medicine
PROC: 5A0935A Assistance with Respiratory Ventilation, Less than 24 Consecutive Hours, High Flow/Velocity Cannula (ICD-10-PCS; principal; 2021-06-18)
PROC: XW033E5 Introduction of Remdesivir Anti-infective into Peripheral Vein, Percutaneous Approach, New Technology Group 5 (ICD-10-PCS; 2021-06-19)
PROC: 5A0935A Assistance with Respiratory Ventilation, Less than 24 Consecutive Hours, High Flow/Velocity Cannula (ICD-10-PCS; 2021-06-19)
PROC: 5A09357 Assistance with Respiratory Ventilation, Less than 24 Consecutive Hours, Continuous Positive Airway Pressure (ICD-10-PCS; 2021-06-19)
PROC: 5A09357 Assistance with Respiratory Ventilation, Less than 24 Consecutive Hours, Continuous Positive Airway Pressure (ICD-10-PCS; 2021-06-20)
PROC: 5A0935A Assistance with Respiratory Ventilation, Less than 24 Consecutive Hours, High Flow/Velocity Cannula (ICD-10-PCS; 2021-06-20)
PROC: 05HY33Z Insertion of Infusion Device into Upper Vein, Percutaneous Approach (ICD-10-PCS; 2021-06-21)
PROC: 5A0935A Assistance with Respiratory Ventilation, Less than 24 Consecutive Hours, High Flow/Velocity Cannula (ICD-10-PCS; 2021-06-21)
PROC: 5A1955Z Respiratory Ventilation, Greater than 96 Consecutive Hours (ICD-10-PCS; 2021-06-21)
PROC: 0BH17EZ Insertion of Endotracheal Airway into Trachea, Via Natural or Artificial Opening (ICD-10-PCS; 2021-06-21)
PROC: 5A09357 Assistance with Respiratory Ventilation, Less than 24 Consecutive Hours, Continuous Positive Airway Pressure (ICD-10-PCS; 2021-06-21)
PROC: 0DH68UZ Insertion of Feeding Device into Stomach, Via Natural or Artificial Opening Endoscopic (ICD-10-PCS; 2021-07-07)
PROC: 0B110F4 Bypass Trachea to Cutaneous with Tracheostomy Device, Open Approach (ICD-10-PCS; 2021-07-07)
DX: U07.1 COVID-19 (principal); J12.82 Pneumonia due to coronavirus disease 2019; J80 Acute respiratory distress syndrome; I63.9 Cerebral infarction, unspecified; I61.9 Nontraumatic intracerebral hemorrhage, unspecified; G93.41 Metabolic encephalopathy; M31.9 Necrotizing vasculopathy, unspecified; I47.1 Supraventricular tachycardia; G72.81 Critical illness myopathy; E11.9 Type 2 diabetes mellitus without complications; I25.10 Atherosclerotic heart disease of native coronary artery without angina pectoris; I10 Essential (primary) hypertension; E78.5 Hyperlipidemia, unspecified; G89.29 Other chronic pain; M54.5 Low back pain; R74.01 Elevation of levels of liver transaminase levels; D50.9 Iron deficiency anemia, unspecified; Z87.442 Personal history of urinary calculi; Z95.1 Presence of aortocoronary bypass graft; Z87.891 Personal history of nicotine dependence
CPT/HCPCS: 10078; 10081; 50101; 50386; 50403; 56525; 58574; 58585; 58961; 62110; 62900

== ENCOUNTER 2021-09-17 11:24 | Emergency (ER) | payer OTHER ==
[~2021-09-17] VITALS: Ht 170.2 cm; Wt 77.6 kg
[~2021-09-17 11:24] MED LIST changes: +ENOXAPARIN40 MG/0.1 SUBQ; +METFORMIN HCL500 MG PO; +NEURONTIN 300M300 M2 PO
[2021-09-17 12:11] VITALS: BP 124/79
== END 2021-09-17 13:23 | disposition home or self-care (01) ==
LOC: ER 11:24
DX: R41.82 Altered mental status, unspecified (principal); I10 Essential (primary) hypertension; E78.5 Hyperlipidemia, unspecified; E11.9 Type 2 diabetes mellitus without complications; Z79.899 Other long term (current) drug therapy; W19.XXXA Unspecified fall, initial encounter; Y93.89 Activity, other specified; Y92.89 Other specified places as the place of occurrence of the external cause; Y99.8 Other external cause status

== ENCOUNTER 2021-10-05 09:57 | Emergency (ER) | payer OTHER ==
[~2021-10-05] VITALS: Ht 170.2 cm; Wt 82.1 kg
[2021-10-05 10:33] LABS: BE(vivo) 9.9 mmol/L (-2 to +3); HCO3 36.2 mmol/L (22.0-26.0); PCO2 60.8 mmHg (35.0-45.0); pH 7.393 (7.360-7.450); sO2 98.9 % (92.0-98.0)
[2021-10-05 10:36] LABS: ABSOLUTE NEUTROPHILS 2.6 thou/uL (1.4-8.2); BASOPHILS 0.8 % (0.0-2.0); EOSINOPHILS 4.1 % (0.0-3.0); HEMOGLOBIN 8.6 gm/dL (12.0-15.0); LYMPHOCYTES 23.4 % (24.0-44.0); MCH 27.4 pg (26.0-34.0); MCHC 31.8 g/dL (28.0-37.0); MCV 86.3 fL (80.0-100.0); MONOCYTES 14.8 % (1.0-8.0); PLATELET COUNT 214 thou/uL (150-400); POLYS 56.9 % (36.0-66.0); RBC 3.13 mil/uL (4.20-5.00); RDW 13.8 % (10.5-14.5); WBC 4.5 thou/uL (4.0-11.0)
[2021-10-05 12:02] LABS: CREATININE 0.6 mg/dL (0.6-1.0); POTASSIUM 3.9 mmol/L (3.5-5.1)
[2021-10-05 12:13] LABS: ALBUMIN 2.8 g/dL (3.4-5.0); MAGNESIUM 2.1 mg/dL (1.8-2.4); TOTAL BILIRUBIN 0.1 mg/dL (0.2-1.0); TOTAL PROTEIN 7.5 g/dL (6.4-8.2)
--- NOTE | 2021-10-05 15:24 | NUR ---
Spoke to son Luis Armando Hankins at [phone] who needed clarification as he was told to admit the patient to the hospital for "3 midnights" and then he could move his mother. Explained that criteria for acute admission must first be met and that internal medicine was seeing the patient as the ED MD was unable to see the need for an inpatient admission. Upon that evaluation; I would then call him back. After Internal Medicine saw the patient they too concurred that the patient did not require acute medical admission at this time. Then spoke with son again who expressed frustration with [facility] and then explained Medicare verse Medicaid. Son states that the mother will covert back to traditional Medicare on 10-14-21 and is working on Medicaid as well. Gave son the number to the [facility] office to mitigate with [facility] his concerns as well as navigate his mother's current and possible future needs at [phone]. Then reiterated to son that given the patient had no admitting diagnosis in need of acute inpatient admission that she would then be discharging back to [facility] and he said he understood and would call the Ombudsman's office. Notified the ED of above.
[2021-10-05 17:24] VITALS: BP 163/83
== END 2021-10-05 17:27 ==
LOC: ER 09:57
PROVIDERS: Emergency Medicine
DX: R41.0 Disorientation, unspecified (principal); E11.9 Type 2 diabetes mellitus without complications; I10 Essential (primary) hypertension; I25.10 Atherosclerotic heart disease of native coronary artery without angina pectoris; I63.9 Cerebral infarction, unspecified; Z87.442 Personal history of urinary calculi; E78.5 Hyperlipidemia, unspecified; Z79.82 Long term (current) use of aspirin; Z79.899 Other long term (current) drug therapy; Z79.891 Long term (current) use of opiate analgesic